=== PATIENT | male | born 1950 | race Caucasian/White ===

== ENCOUNTER 2022-01-31 12:10 | Inpatient (IN) | payer OTHER ==
[~2022-01-31] VITALS: Ht 182.9 cm; Wt 118.0 kg
[2022-01-31] MEDS ORDERED: SODIUM CHLORIDE 0.9% 1,000 ML IV ONE (13:00)
[2022-01-31] MEDS ORDERED: ASPirin 81 mg TAB PO ONE (13:00)
[2022-01-31] MEDS ORDERED: SODIUM CHLORIDE 0.9% 1,000 ML IVB ONE (13:00)
[2022-01-31 13:32] LABS: Basophils # (auto) 0 10 ^3/uL (0-0.2); Basophils % (auto) 0.9 % (0.0-2.0); Eosinophils # (auto) 0.7 10 ^3/uL (0-0.8); Eosinophils % (auto) 14.1 % (0.0-7.0); Hemoglobin 13.3 g/dL (13.5-17.5); Lymphocytes # (auto) 1.4 10 ^3/uL (0.4-5.4); Lymphocytes % (auto) 27.6 % (10.0-50.0); Mean Corpuscular Volume 88.2 fL (80.0-100.0); Monocytes # (auto) 0.3 10 ^3/uL (0-1.3); Monocytes % (auto) 5.3 % (0.0-12.0); Neutrophils # (auto) 2.6 10 ^3/uL (1.6-8.6); Neutrophils % (auto) 52.1 % (37.0-80.0); Nucleated Red Blood Cells % 0.1 %; Red Blood Cells 4.42 10^6/uL (4.5-5.90); Red Cell Distribution Width 18.7 % (11.8-14.3)
[2022-01-31 13:44] LABS: Albumin 4.1 g/dL (3.4-5.0); Calcium 9.9 mg/dL (8.5-10.1); Potassium 4.1 mmol/L (3.5-5.1)
[2022-01-31 13:50] LABS: BUN/Creatinine Ratio 16.6; Bilirubin, Total 0.6 mg/dL (0.2-1.0); Total Protein 7.9 g/dL (6.4-8.2)
[2022-01-31 14:28] LABS: INR 1.2 (0.9-1.15); Partial Thromboplastin Time 28.4 sec (23.6-33.0)
[2022-01-31] MEDS ORDERED: FUROSEMIDE 40 MG/4 ML VIAL IV ONE (15:30)
[2022-01-31] MEDS ORDERED: SPIRONOLACTONE 25 MG TAB PO ONE (15:30)
[2022-01-31] MEDS ORDERED: LEVOTHYROXINE SODIUM 100 MCG/5 ML INJ IV ONE (15:30)
[2022-01-31] MEDS ORDERED: IPRATROPIUM BROM 0.5 MG/2.5ML INH SOL NEB PRN ×2 (16:15→17:00)
[2022-01-31] MEDS ORDERED: DOCUSATE SOD 100 MG CAP PO PRN (16:15)
[2022-01-31] MEDS ORDERED: NITROGLYCERIN 0.4 MG SL TAB SL PRN (16:15)
[2022-01-31] MEDS ORDERED: MORPHINE SULFATE 4 MG/ML SYR/VIAL IV PRN (16:15)
[2022-01-31] MEDS ORDERED: ALBUTEROL SULF 2.5 MG/0.5ML(0.5%) NEB SOLN NEB PRN ×2 (16:15→17:00)
[2022-01-31] MEDS ORDERED: ONDANSETRON HCL 4 MG/2 ML VIAL IV PRN (16:15)
[2022-01-31] MEDS ORDERED: ACETAMINOPHEN 325 MG TAB PO PRN (16:15)
[2022-01-31] MEDS ORDERED: hydrALAZINE HCL 20 MG/ML VL IV PRN (16:15)
[2022-01-31] MEDS ORDERED: TAM04C PO (16:19)
[2022-01-31] MEDS ORDERED: GLIP5TAB12 PO (16:21)
[2022-01-31] MEDS ORDERED: HYDR50TA69 PO (16:21)
[2022-01-31] MEDS ORDERED: FINACRY XX (16:26)
[2022-01-31] MEDS ORDERED: ESCI-28 PO (16:26)
[2022-01-31 16:27] VITALS: BP 139/89
[2022-01-31] MEDS ORDERED: TRAZ-181 PO (16:27)
[2022-01-31] MEDS ORDERED: LOSA-69 PO (16:27)
[2022-01-31] MEDS ORDERED: ASPI-543 PO (16:28)
[2022-01-31] MEDS ORDERED: INSLANTI SC (16:30)
[2022-01-31] MEDS ORDERED: DEXTROSE (50%) 50ML SYRG IV PRN (16:45)
[2022-01-31] MEDS ORDERED: glipiZIDE 5 MG TAB PO SCH (18:00)
[2022-01-31] MEDS: ACCU-CHEK COMFORT CURVE STRIP VI SCH ×2 (18:40→22:42)
[2022-01-31] MEDS: InsuLIN REG 1unit/0.01ml Soln (100units/ml) SC SCH ×2 (18:41→22:14)
[2022-01-31 21:30] VITALS: BP 120/70
[2022-01-31] MEDS: TAMSULOSIN HYDROCHLORIDE 0.4 MG CAP PO SCH (22:10)
[2022-01-31] MEDS: SODIUM CHLOR 0.9% PF (SALINE LOCK) 10ML VIAL/SYR IV SCH (22:10)
[2022-01-31] MEDS: INSULIN LANTUS (GLARGINE) 1 /0.01ml (100units/ml) SC SCH (22:15)
[2022-01-31 23:15] VITALS: BP 120/70
[2022-02-01] MEDS: TEMAZEPAM 15 MG CAP PO PRN (01:26)
[2022-02-01 04:26] VITALS: BP 97/43
[2022-02-01 05:41] LABS: Basophils # (auto) 0.1 10 ^3/uL (0-0.2); Basophils % (auto) 1.1 % (0.0-2.0); Eosinophils # (auto) 0.8 10 ^3/uL (0-0.8); Eosinophils % (auto) 14.1 % (0.0-7.0); Hematocrit 36.3 % (41.0-53.0); Hemoglobin 12.7 g/dL (13.5-17.5); Lymphocytes # (auto) 1.4 10 ^3/uL (0.4-5.4); Lymphocytes % (auto) 25.3 % (10.0-50.0); Mean Corpuscular Hemoglobin 30.4 pg (28.0-32.0); Mean Corpuscular Hgb Conc. 35.1 g/dL (32.0-36.0); Mean Corpuscular Volume 86.7 fL (80.0-100.0); Monocytes # (auto) 0.4 10 ^3/uL (0-1.3); Monocytes % (auto) 6.6 % (0.0-12.0); Neutrophils # (auto) 2.9 10 ^3/uL (1.6-8.6); Neutrophils % (auto) 52.9 % (37.0-80.0); Nucleated Red Blood Cells % 0.1 %; Red Blood Cells 4.18 10^6/uL (4.5-5.90); Red Cell Distribution Width 18.6 % (11.8-14.3); White Blood Cell 5.4 10^3/uL (4.4-10.8)
[2022-02-01 06:03] LABS: Calcium 10.1 mg/dL (8.5-10.1); Potassium 3.6 mmol/L (3.5-5.1)
[2022-02-01 06:06] LABS: BUN/Creatinine Ratio 17.8
[2022-02-01 06:20] LABS: Bilirubin, Total 0.4 mg/dL (0.2-1.0); Total Protein 7.5 g/dL (6.4-8.2)
[2022-02-01] MEDS: SODIUM CHLOR 0.9% PF (SALINE LOCK) 10ML VIAL/SYR IV SCH ×3 (06:24→21:44)
[2022-02-01] MEDS: InsuLIN REG 1unit/0.01ml Soln (100units/ml) SC SCH ×4 (06:26→21:45)
[2022-02-01] MEDS: ACCU-CHEK COMFORT CURVE STRIP VI SCH ×4 (06:27→21:44)
[2022-02-01] MEDS ORDERED: LEVOTHYROXINE SODIUM 50 MCG TAB PO SCH (07:00)
[2022-02-01 08:36] VITALS: BP 95/52
[2022-02-01] MEDS: ASPirin-EC 81 mg tab PO SCH (09:18)
[2022-02-01] MEDS: CITALOPRAM HYDROBR 20 MG TAB PO SCH (09:18)
[2022-02-01] MEDS: FINASTERIDE 5 MG TAB PO SCH (09:19)
[2022-02-01] MEDS: TAMSULOSIN HYDROCHLORIDE 0.4 MG CAP PO SCH ×2 (09:19→21:37)
[2022-02-01] MEDS ORDERED: FUROSEMIDE 20 MG/2 ML VIAL IV SCH (10:00)
[2022-02-01] MEDS ORDERED: ENOXAPARIN SOD 40 MG/0.4 ML SYRINGE SC SCH (10:00)
[2022-02-01] MEDS: FUROSEMIDE 40 MG/4 ML VIAL IV SCH (10:00)
[2022-02-01] MEDS ORDERED: INFLUENZA QUAD 2021-2022 0.5 ML SYRG IM ONE (12:15)
[2022-02-01 12:56] VITALS: BP 105/59
[2022-02-01] MEDS ORDERED: guaiFENesin-DM 100/10mg/5ml SYR PO PRN (13:00)
[2022-02-01] MEDS: HYDROcodone-ACET 5/325MG TAB PO PRN ×2 (13:18→20:34)
[2022-02-01 16:46] VITALS: BP 92/70
[2022-02-01] MEDS: INSULIN LANTUS (GLARGINE) 1 /0.01ml (100units/ml) SC SCH (21:45)
[2022-02-02 05:00] VITALS: BP 105/65
[2022-02-02] MEDS: SODIUM CHLOR 0.9% PF (SALINE LOCK) 10ML VIAL/SYR IV SCH ×3 (05:08→21:47)
[2022-02-02] MEDS: LEVOTHYROXINE SODIUM 100 MCG TAB PO SCH (05:09)
[2022-02-02] MEDS: ACCU-CHEK COMFORT CURVE STRIP VI SCH ×4 (05:55→22:01)
[2022-02-02] MEDS: InsuLIN REG 1unit/0.01ml Soln (100units/ml) SC SCH ×4 (05:59→22:06)
[2022-02-02 06:20] LABS: Basophils # (auto) 0 10 ^3/uL (0-0.2); Basophils % (auto) 1.1 % (0.0-2.0); Eosinophils # (auto) 0.6 10 ^3/uL (0-0.8); Eosinophils % (auto) 13.1 % (0.0-7.0); Hemoglobin 12.6 g/dL (13.5-17.5); Lymphocytes # (auto) 1.4 10 ^3/uL (0.4-5.4); Lymphocytes % (auto) 31.1 % (10.0-50.0); Mean Corpuscular Hemoglobin 31.1 pg (28.0-32.0); Mean Corpuscular Hgb Conc. 36.1 g/dL (32.0-36.0); Mean Corpuscular Volume 86.2 fL (80.0-100.0); Monocytes # (auto) 0.3 10 ^3/uL (0-1.3); Monocytes % (auto) 5.6 % (0.0-12.0); Neutrophils # (auto) 2.2 10 ^3/uL (1.6-8.6); Neutrophils % (auto) 49.1 % (37.0-80.0); Nucleated Red Blood Cells % 0.1 %; Red Blood Cells 4.06 10^6/uL (4.5-5.90); Red Cell Distribution Width 18.8 % (11.8-14.3); White Blood Cell 4.5 10^3/uL (4.4-10.8)
[2022-02-02 06:42] LABS: Potassium 3.8 mmol/L (3.5-5.1)
[2022-02-02 06:53] LABS: Albumin 4.1 g/dL (3.4-5.0); BUN/Creatinine Ratio 19.4; Bilirubin, Total 0.6 mg/dL (0.2-1.0); Calcium 9.6 mg/dL (8.5-10.1); Magnesium 2.1 mg/dL (1.6-2.6); Phosphorus 4.6 mg/dL (2.5-4.90); Total Protein 7.8 g/dL (6.4-8.2)
[2022-02-02 08:00] VITALS: BP 111/60
[2022-02-02] MEDS ORDERED: ENOXAPARIN SOD 30 MG/0.3 ML SYRINGE SC SCH (10:00)
[2022-02-02] MEDS: CITALOPRAM HYDROBR 20 MG TAB PO SCH (10:10)
[2022-02-02] MEDS: ASPirin-EC 81 mg tab PO SCH (10:10)
[2022-02-02] MEDS: FUROSEMIDE 40 MG/4 ML VIAL IV SCH (10:10)
[2022-02-02] MEDS: TAMSULOSIN HYDROCHLORIDE 0.4 MG CAP PO SCH ×2 (10:10→21:48)
[2022-02-02] MEDS: FINASTERIDE 5 MG TAB PO SCH (10:10)
[2022-02-02] MEDS ORDERED: INSLANTI SC (10:20)
[2022-02-02] MEDS ORDERED: ARIP2TAB PO (10:20)
[2022-02-02] MEDS ORDERED: LOSA25TA38 PO (10:20)
[2022-02-02] MEDS ORDERED: LEVO112T4 PO (10:20)
[2022-02-02] MEDS ORDERED: TAM04C PO (10:20)
[2022-02-02] MEDS ORDERED: FINACRY PO (10:20)
[2022-02-02] MEDS ORDERED: GLIP5TAB12 PO (10:20)
[2022-02-02] MEDS ORDERED: FINA1TAB10 OR (10:21)
[2022-02-02] MEDS ORDERED: FINA5TAB4 PO (10:21)
[2022-02-02 12:00] VITALS: BP 113/73
[2022-02-02 16:00] VITALS: BP 102/61
[2022-02-02] MEDS: ACETAMINOPHEN 325 MG TAB PO PRN ×2 (16:29→21:49)
[2022-02-02] MEDS: ATORVASTATIN 20 MG TAB PO SCH (21:48)
[2022-02-02] MEDS: APIXABAN 5 MG TAB PO SCH (21:48)
[2022-02-02 22:00] VITALS: BP 109/71
[2022-02-02] MEDS: INSULIN LANTUS (GLARGINE) 1 /0.01ml (100units/ml) SC SCH (22:07)
[2022-02-03] MEDS: LEVOTHYROXINE SODIUM 100 MCG TAB PO SCH (05:14)
[2022-02-03] MEDS: SODIUM CHLOR 0.9% PF (SALINE LOCK) 10ML VIAL/SYR IV SCH ×3 (05:14→21:54)
[2022-02-03] MEDS: HYDROcodone-ACET 5/325MG TAB PO PRN ×2 (05:15→18:43)
[2022-02-03 05:17] VITALS: BP 91/47
[2022-02-03] MEDS: ACCU-CHEK COMFORT CURVE STRIP VI SCH ×4 (06:17→21:54)
[2022-02-03] MEDS: InsuLIN REG 1unit/0.01ml Soln (100units/ml) SC SCH ×4 (06:19→21:53)
[2022-02-03 07:38] LABS: Calcium 9.5 mg/dL (8.5-10.1); Magnesium 2.7 mg/dL (1.6-2.6); Potassium 3.6 mmol/L (3.5-5.1)
[2022-02-03 07:40] LABS: BUN/Creatinine Ratio 19.3
[2022-02-03 08:00] VITALS: BP 93/42
[2022-02-03] MEDS: ASPirin-EC 81 mg tab PO SCH (09:05)
[2022-02-03] MEDS: CITALOPRAM HYDROBR 20 MG TAB PO SCH (09:05)
[2022-02-03] MEDS: FINASTERIDE 5 MG TAB PO SCH (09:06)
[2022-02-03] MEDS: APIXABAN 5 MG TAB PO SCH ×2 (09:06→21:54)
[2022-02-03] MEDS: TAMSULOSIN HYDROCHLORIDE 0.4 MG CAP PO SCH ×2 (09:06→21:54)
[2022-02-03 10:27] LABS: Urine Bacteria FEW /hpf (None Seen); Urine Blood 2+ /uL (Negative); Urine Hyaline Cast FEW /lpf (0 - 2); Urine Mucus FEW (None Seen); Urine Specific Gravity 1.022 (1.001-1.035); Urine WBC 32 /hpf (0 - 3)
[2022-02-03 10:56] LABS: Creatinine, Urine 175 mg/dL (30.0-125.0); Sodium Urine 31 mmol/L (40-220)
[2022-02-03 12:09] VITALS: BP 96/45
[2022-02-03] MEDS: cefTRIAXone 1GM/50ML D5W 50 ML IV SCH (12:10)
[2022-02-03 16:38] VITALS: BP 93/70
[2022-02-03 17:09] VITALS: BP 93/70
[2022-02-03 21:48] VITALS: BP 105/56
[2022-02-03] MEDS: ATORVASTATIN 20 MG TAB PO SCH (21:53)
[2022-02-03] MEDS: INSULIN LANTUS (GLARGINE) 1 /0.01ml (100units/ml) SC SCH (21:54)
[2022-02-03] MEDS: SOD CHL 0.45% 1,000 ML IV SCH (22:30)
[2022-02-04] VITALS (7 sets, daily range): BP systolic 101–129; BP diastolic 65–80
[2022-02-04] MEDS: SODIUM CHLOR 0.9% PF (SALINE LOCK) 10ML VIAL/SYR IV SCH ×3 (06:00→21:44)
[2022-02-04 06:06] LABS: Basophils # (auto) 0.1 10 ^3/uL (0-0.2); Basophils % (auto) 0.9 % (0.0-2.0); Eosinophils # (auto) 0.8 10 ^3/uL (0-0.8); Eosinophils % (auto) 13.7 % (0.0-7.0); Hematocrit 35.6 % (41.0-53.0); Hemoglobin 12.6 g/dL (13.5-17.5); Lymphocytes # (auto) 1.6 10 ^3/uL (0.4-5.4); Lymphocytes % (auto) 29.2 % (10.0-50.0); Mean Corpuscular Hemoglobin 30.7 pg (28.0-32.0); Mean Corpuscular Hgb Conc. 35.4 g/dL (32.0-36.0); Mean Corpuscular Volume 86.8 fL (80.0-100.0); Monocytes # (auto) 0.4 10 ^3/uL (0-1.3); Monocytes % (auto) 6.6 % (0.0-12.0); Neutrophils # (auto) 2.7 10 ^3/uL (1.6-8.6); Neutrophils % (auto) 49.6 % (37.0-80.0); Nucleated Red Blood Cells % 0.2 %; Red Cell Distribution Width 18.5 % (11.8-14.3); White Blood Cell 5.5 10^3/uL (4.4-10.8)
[2022-02-04 06:19] LABS: Potassium 3.8 mmol/L (3.5-5.1)
[2022-02-04 06:29] LABS: BUN/Creatinine Ratio 21.1; Calcium 9.7 mg/dL (8.5-10.1); Magnesium 2.7 mg/dL (1.6-2.6)
[2022-02-04] MEDS: ACCU-CHEK COMFORT CURVE STRIP VI SCH ×4 (06:52→21:39)
[2022-02-04] MEDS: InsuLIN REG 1unit/0.01ml Soln (100units/ml) SC SCH ×4 (06:52→21:41)
[2022-02-04] MEDS: LEVOTHYROXINE SODIUM 100 MCG TAB PO SCH (06:52)
[2022-02-04] MEDS: cefTRIAXone 1GM/50ML D5W 50 ML IV SCH (08:37)
[2022-02-04] MEDS: ASPirin-EC 81 mg tab PO SCH (09:31)
[2022-02-04] MEDS: APIXABAN 5 MG TAB PO SCH ×3 (09:31→21:56)
[2022-02-04] MEDS: CITALOPRAM HYDROBR 20 MG TAB PO SCH (09:31)
[2022-02-04] MEDS: TAMSULOSIN HYDROCHLORIDE 0.4 MG CAP PO SCH ×2 (09:31→21:45)
[2022-02-04] MEDS: FINASTERIDE 5 MG TAB PO SCH (09:31)
[2022-02-04] MEDS ORDERED: POLYETHYLENE GLYCOL 17 GM PWDR PO PRN (12:00)
[2022-02-04] MEDS: SOD CHL 0.45% 1,000 ML IV SCH ×2 (13:00→18:00)
[2022-02-04] MEDS: HYDROcodone-ACET 5/325MG TAB PO PRN ×2 (17:29→22:54)
[2022-02-04] MEDS: ATORVASTATIN 20 MG TAB PO SCH (21:45)
[2022-02-04] MEDS ORDERED: INSULIN LANTUS (GLARGINE) 1 /0.01ml (100units/ml) SC SCH (22:00)
[2022-02-05] MEDS: SOD CHL 0.45% 1,000 ML IV SCH (01:28)
[2022-02-05 05:00] VITALS: BP 111/63
[2022-02-05] MEDS: SODIUM CHLOR 0.9% PF (SALINE LOCK) 10ML VIAL/SYR IV SCH ×3 (06:04→22:10)
[2022-02-05 06:12] LABS: INR 1.22 (0.9-1.15); Partial Thromboplastin Time 30.6 sec (23.6-33.0)
[2022-02-05 06:19] LABS: Calcium 9.2 mg/dL (8.5-10.1); Magnesium 2.6 mg/dL (1.6-2.6); Potassium 3.9 mmol/L (3.5-5.1)
[2022-02-05] MEDS: ACCU-CHEK COMFORT CURVE STRIP VI SCH ×4 (06:22→22:13)
[2022-02-05] MEDS: InsuLIN REG 1unit/0.01ml Soln (100units/ml) SC SCH ×4 (06:22→22:00)
[2022-02-05] MEDS: LEVOTHYROXINE SODIUM 100 MCG TAB PO SCH (06:28)
[2022-02-05 06:30] LABS: BUN/Creatinine Ratio 21.1
[2022-02-05 08:00] VITALS: BP 90/63
[2022-02-05] MEDS: cefTRIAXone 1GM/50ML D5W 50 ML IV SCH (08:47)
[2022-02-05 09:00] VITALS: BP_SYST 116; BP_SYST 90; BP_DIAS 63; BP_DIAS 67
[2022-02-05] MEDS: CITALOPRAM HYDROBR 20 MG TAB PO SCH (10:38)
[2022-02-05] MEDS: FINASTERIDE 5 MG TAB PO SCH (10:38)
[2022-02-05] MEDS: TAMSULOSIN HYDROCHLORIDE 0.4 MG CAP PO SCH ×2 (10:38→22:00)
[2022-02-05] MEDS: ASPirin-EC 81 mg tab PO SCH (11:06)
[2022-02-05 12:30] VITALS: BP 113/69
[2022-02-05] MEDS ORDERED: LEVOTHYROXINE SODIUM 100 MCG/5 ML INJ IV ONE (12:30)
[2022-02-05] MEDS ORDERED: BISACODYL 10 MG RECT SUPP PR PRN (12:45)
[2022-02-05] MEDS ORDERED: BISACODYL 10 MG RECT SUPP PR ONE (12:45)
[2022-02-05] MEDS ORDERED: ANGIOMAX 250 MG VIAL IV ONE (14:56)
[2022-02-05] MEDS ORDERED: MIDAZOLAM HCL 2MG/2ML 2ml VIAL (1mg/ml) ONE (14:57)
[2022-02-05] MEDS ORDERED: SODIUM CHL 0.9% 0 ML ONE (14:57)
[2022-02-05] MEDS ORDERED: fentaNYL CITRATE 100 MCG/2 ML VL ONE (14:57)
[2022-02-05] MEDS ORDERED: IOHEXOL 350 MG/ML 100ML IJ ONE (14:58)
[2022-02-05] MEDS ORDERED: LIDOCAINE 2%HCL (LOCAL ANESTH.) INJ 10ml MDV ONE (14:59)
[2022-02-05 18:01] VITALS: BP 99/65
[2022-02-05 22:00] VITALS: BP 109/67
[2022-02-05] MEDS ORDERED: INSULIN LANTUS (GLARGINE) 1 /0.01ml (100units/ml) SC SCH (22:00)
[2022-02-05] MEDS: APIXABAN 5 MG TAB PO SCH (22:11)
[2022-02-05] MEDS: ATORVASTATIN 20 MG TAB PO SCH (22:12)
[2022-02-06 05:00] VITALS: BP 125/63
[2022-02-06] MEDS: InsuLIN REG 1unit/0.01ml Soln (100units/ml) SC SCH ×4 (06:04→21:32)
[2022-02-06] MEDS: ACCU-CHEK COMFORT CURVE STRIP VI SCH ×4 (06:04→21:34)
[2022-02-06] MEDS: SODIUM CHLOR 0.9% PF (SALINE LOCK) 10ML VIAL/SYR IV SCH ×3 (06:04→21:34)
[2022-02-06 06:07] LABS: Basophils # (auto) 0.1 10 ^3/uL (0-0.2); Basophils % (auto) 1.3 % (0.0-2.0); Eosinophils # (auto) 0.4 10 ^3/uL (0-0.8); Eosinophils % (auto) 8.7 % (0.0-7.0); Hematocrit 36.2 % (41.0-53.0); Hemoglobin 12.7 g/dL (13.5-17.5); Lymphocytes # (auto) 1.1 10 ^3/uL (0.4-5.4); Lymphocytes % (auto) 22.6 % (10.0-50.0); Mean Corpuscular Hemoglobin 30.9 pg (28.0-32.0); Mean Corpuscular Hgb Conc. 35.1 g/dL (32.0-36.0); Mean Corpuscular Volume 87.8 fL (80.0-100.0); Monocytes # (auto) 0.3 10 ^3/uL (0-1.3); Monocytes % (auto) 5.9 % (0.0-12.0); Neutrophils # (auto) 3.1 10 ^3/uL (1.6-8.6); Neutrophils % (auto) 61.5 % (37.0-80.0); Nucleated Red Blood Cells % 0.1 %; Red Blood Cells 4.12 10^6/uL (4.5-5.90)
[2022-02-06 06:31] LABS: Potassium 3.9 mmol/L (3.5-5.1)
[2022-02-06 06:42] LABS: Albumin 4.1 g/dL (3.4-5.0); BUN/Creatinine Ratio 18.4; Bilirubin, Total 0.5 mg/dL (0.2-1.0); Total Protein 7.7 g/dL (6.4-8.2)
[2022-02-06 08:43] VITALS: BP 128/72
[2022-02-06] MEDS: TAMSULOSIN HYDROCHLORIDE 0.4 MG CAP PO SCH ×2 (09:08→21:32)
[2022-02-06] MEDS: APIXABAN 5 MG TAB PO SCH ×2 (09:08→21:31)
[2022-02-06] MEDS: CITALOPRAM HYDROBR 20 MG TAB PO SCH (09:08)
[2022-02-06] MEDS: LEVOTHYROXINE SODIUM 100 MCG TAB PO SCH (09:08)
[2022-02-06] MEDS: cefTRIAXone 1GM/50ML D5W 50 ML IV SCH (09:09)
[2022-02-06] MEDS: FINASTERIDE 5 MG TAB PO SCH (09:12)
[2022-02-06] MEDS ORDERED: DEXTROSE (50%) 50ML SYRG IV PRN (11:00)
[2022-02-06 12:30] VITALS: BP 118/68
[2022-02-06 17:00] VITALS: BP 141/77
[2022-02-06] MEDS: ATORVASTATIN 20 MG TAB PO SCH (21:32)
[2022-02-06] MEDS: INSULIN LANTUS (GLARGINE) 1 /0.01ml (100units/ml) SC SCH (21:33)
[2022-02-06] MEDS: HYDROcodone-ACET 5/325MG TAB PO PRN (21:34)
[2022-02-06 22:00] VITALS: BP 120/62
[2022-02-07 05:00] VITALS: BP 119/55
[2022-02-07] MEDS: LEVOTHYROXINE SODIUM 112 MCG TAB PO SCH (05:34)
[2022-02-07] MEDS: ACCU-CHEK COMFORT CURVE STRIP VI SCH ×4 (05:35→21:57)
[2022-02-07] MEDS: InsuLIN REG 1unit/0.01ml Soln (100units/ml) SC SCH ×4 (05:35→21:56)
[2022-02-07] MEDS: SODIUM CHLOR 0.9% PF (SALINE LOCK) 10ML VIAL/SYR IV SCH ×3 (05:36→22:17)
[2022-02-07 05:45] LABS: Basophils # (auto) 0.1 10 ^3/uL (0-0.2); Eosinophils # (auto) 0.5 10 ^3/uL (0-0.8); Eosinophils % (auto) 9.6 % (0.0-7.0); Hematocrit 34.9 % (41.0-53.0); Hemoglobin 12.4 g/dL (13.5-17.5); Lymphocytes # (auto) 1.5 10 ^3/uL (0.4-5.4); Lymphocytes % (auto) 27.8 % (10.0-50.0); Mean Corpuscular Hemoglobin 30.9 pg (28.0-32.0); Mean Corpuscular Hgb Conc. 35.4 g/dL (32.0-36.0); Mean Corpuscular Volume 87.3 fL (80.0-100.0); Monocytes # (auto) 0.3 10 ^3/uL (0-1.3); Monocytes % (auto) 5.7 % (0.0-12.0); Neutrophils % (auto) 55.9 % (37.0-80.0); Nucleated Red Blood Cells % 0.1 %; White Blood Cell 5.4 10^3/uL (4.4-10.8)
[2022-02-07 06:21] LABS: BUN/Creatinine Ratio 16.3; Potassium 3.9 mmol/L (3.5-5.1)
[2022-02-07 06:23] LABS: Calcium 9.5 mg/dL (8.5-10.1)
[2022-02-07 08:57] VITALS: BP 108/52
[2022-02-07] MEDS: cefTRIAXone 1GM/50ML D5W 50 ML IV SCH (09:00)
[2022-02-07] MEDS: TAMSULOSIN HYDROCHLORIDE 0.4 MG CAP PO SCH ×2 (09:34→21:55)
[2022-02-07] MEDS: FINASTERIDE 5 MG TAB PO SCH (09:34)
[2022-02-07] MEDS: APIXABAN 5 MG TAB PO SCH ×2 (09:34→21:55)
[2022-02-07] MEDS: CITALOPRAM HYDROBR 20 MG TAB PO SCH (09:34)
[2022-02-07 13:00] VITALS: BP 118/52
[2022-02-07 16:04] VITALS: BP 111/57
[2022-02-07] MEDS: HYDROcodone-ACET 5/325MG TAB PO PRN (20:58)
[2022-02-07] MEDS: ATORVASTATIN 20 MG TAB PO SCH (21:54)
[2022-02-07 22:00] VITALS: BP 134/83
[2022-02-07] MEDS: INSULIN LANTUS (GLARGINE) 1 /0.01ml (100units/ml) SC SCH (22:00)
[2022-02-08] MEDS: TEMAZEPAM 15 MG CAP PO PRN (00:16)
[2022-02-08 05:00] VITALS: BP 121/56
[2022-02-08] MEDS: SODIUM CHLOR 0.9% PF (SALINE LOCK) 10ML VIAL/SYR IV SCH (05:47)
[2022-02-08] MEDS: LEVOTHYROXINE SODIUM 112 MCG TAB PO SCH (06:17)
[2022-02-08] MEDS: ACCU-CHEK COMFORT CURVE STRIP VI SCH (06:18)
[2022-02-08] MEDS: InsuLIN REG 1unit/0.01ml Soln (100units/ml) SC SCH (06:22)
[2022-02-08] MEDS: HYDROcodone-ACET 5/325MG TAB PO PRN (07:35)
[2022-02-08 08:00] VITALS: BP 124/71
[2022-02-08] MEDS: CITALOPRAM HYDROBR 20 MG TAB PO SCH (09:33)
[2022-02-08] MEDS: TAMSULOSIN HYDROCHLORIDE 0.4 MG CAP PO SCH (09:33)
[2022-02-08] MEDS: APIXABAN 5 MG TAB PO SCH (09:33)
[2022-02-08] MEDS: FINASTERIDE 5 MG TAB PO SCH (09:34)
[2022-02-08 12:00] VITALS: BP 97/55
== END 2022-02-08 14:53 | disposition left against medical advice (07) | DRG 286 ==
LOC: EDBD 12:10 → ER 12:10 → TELE 16:05 → TELE-CENTR 21:45
PROVIDERS: ADMIT Registered Nurse; ATTEND Internal Medicine
PROC: 4A023N7 Measurement of Cardiac Sampling and Pressure, Left Heart, Percutaneous Approach (ICD-10-PCS; principal; 2022-02-05)
PROC: B2111ZZ Fluoroscopy of Multiple Coronary Arteries using Low Osmolar Contrast (ICD-10-PCS; 2022-02-05)
PROC: B2151ZZ Fluoroscopy of Left Heart using Low Osmolar Contrast (ICD-10-PCS; 2022-02-05)
PROC: B41C1ZZ Fluoroscopy of Pelvic Arteries using Low Osmolar Contrast (ICD-10-PCS; 2022-02-05)
DX: I13.0 Hypertensive heart and chronic kidney disease with heart failure and stage 1 through stage 4 chronic kidney disease, or unspecified chronic kidney disease (principal); N17.0 Acute kidney failure with tubular necrosis; I50.43 Acute on chronic combined systolic (congestive) and diastolic (congestive) heart failure; D68.69 Other thrombophilia; N13.8 Other obstructive and reflux uropathy; N18.4 Chronic kidney disease, stage 4 (severe); N39.0 Urinary tract infection, site not specified; E03.9 Hypothyroidism, unspecified; I42.9 Cardiomyopathy, unspecified; I48.91 Unspecified atrial fibrillation; D69.6 Thrombocytopenia, unspecified; G25.81 Restless legs syndrome; Z20.822 Contact with and (suspected) exposure to COVID-19; E11.22 Type 2 diabetes mellitus with diabetic chronic kidney disease; N40.1 Benign prostatic hyperplasia with lower urinary tract symptoms; E66.9 Obesity, unspecified; R00.1 Bradycardia, unspecified; Z53.21 Procedure and treatment not carried out due to patient leaving prior to being seen by health care provider; R09.89 Other specified symptoms and signs involving the circulatory and respiratory systems; K42.9 Umbilical hernia without obstruction or gangrene; E78.5 Hyperlipidemia, unspecified; I25.10 Atherosclerotic heart disease of native coronary artery without angina pectoris; Z82.49 Family history of ischemic heart disease and other diseases of the circulatory system; Z83.3 Family history of diabetes mellitus; Z86.73 Personal history of transient ischemic attack (TIA), and cerebral infarction without residual deficits; Z87.891 Personal history of nicotine dependence; Z91.14 Patient's other noncompliance with medication regimen; Z91.19 Patient's noncompliance with other medical treatment and regimen; Z95.1 Presence of aortocoronary bypass graft; Z68.34 Body mass index [BMI] 34.0-34.9, adult
CPT/HCPCS: 36415; 71045; 75736; 76775; 80048; 80053; 80061; 81001; 82570; 82962; 83036; 83735; 83880; 84100; 84133; 84300; 84439; 84443; 84484; 85025; 85379; 85610; 85730; 86850; 86900; 86901; 87086; 87088; 90686; 93005; 93306; 93458; 93886; 96361; 96374; 97116; 97163; 97530; 99152; 99153; G0378; J0696; J1815; J2001; J2250; J3490

== ENCOUNTER 2022-04-09 20:02 | Inpatient (IN) | payer OTHER ==
[~2022-04-09] VITALS: Ht 170.2 cm; Wt 109.0 kg
[~2022-04-09 20:02] MED LIST: ARIP2TAB PO; ASPI-543 PO; ESCI-28 PO; FINA5TAB4 PO; GLIP5TAB12 PO; HYDR50TA69 PO; INSLANTI SC; LEVO112T4 PO; LOSA25TA38 PO; TAM04C PO; TRAZ-181 PO
[2022-04-09 21:12] LABS: Basophils # (auto) 0.1 10 ^3/uL (0-0.2); Basophils % (auto) 2.8 % (0.0-2.0); Eosinophils # (auto) 0.5 10 ^3/uL (0-0.8); Eosinophils % (auto) 12.6 % (0.0-7.0); Hematocrit 36.9 % (41.0-53.0); Lymphocytes # (auto) 1.2 10 ^3/uL (0.4-5.4); Lymphocytes % (auto) 30.6 % (10.0-50.0); Mean Corpuscular Hemoglobin 31.9 pg (28.0-32.0); Mean Corpuscular Hgb Conc. 35.1 g/dL (32.0-36.0); Mean Corpuscular Volume 90.8 fL (80.0-100.0); Monocytes # (auto) 0.2 10 ^3/uL (0-1.3); Nucleated Red Blood Cells % 0.2 %; Red Blood Cells 4.07 10^6/uL (4.5-5.90); Red Cell Distribution Width 15.6 % (11.8-14.3)
[2022-04-09 21:30] LABS: Albumin 3.5 g/dL (3.4-5.0); Calcium 8.9 mg/dL (8.5-10.1); Potassium 4.2 mmol/L (3.5-5.1)
[2022-04-09 21:32] LABS: BUN/Creatinine Ratio 11.2
[2022-04-09 21:34] LABS: Bilirubin, Total 0.4 mg/dL (0.2-1.0); Total Protein 7.2 g/dL (6.4-8.2)
[2022-04-10] MEDS ORDERED: ONDANSETRON HCL 4 MG/2 ML VIAL IV PRN (01:15)
[2022-04-10] MEDS ORDERED: ACETAMINOPHEN 325 MG TAB PO PRN (01:15)
[2022-04-10] MEDS ORDERED: DEXTROSE (50%) 50ML SYRG IV PRN (01:15)
[2022-04-10] MEDS: InsuLIN REG 1unit/0.01ml Soln (100units/ml) SC SCH ×3 (06:49→17:33)
[2022-04-10] MEDS: ACCU-CHEK COMFORT CURVE STRIP VI SCH ×3 (06:49→17:16)
[2022-04-10] MEDS ORDERED: LEVOTHYROXINE SODIUM 112 MCG TAB PO SCH (07:00)
[2022-04-10 09:00] VITALS: BP_SYST 94; BP_SYST 95; BP_DIAS 52; BP_DIAS 66
[2022-04-10] MEDS: ASPirin 81 mg TAB PO SCH (09:30)
[2022-04-10] MEDS: LOSARTAN POTASSIUM 25 MG TAB PO SCH (09:31)
[2022-04-10] MEDS: FINASTERIDE 5 MG TAB PO SCH (09:32)
[2022-04-10] MEDS ORDERED: ENOXAPARIN SOD 30 MG/0.3 ML SYRINGE SC SCH ×2 (10:00→22:00)
[2022-04-10 12:37] VITALS: BP 115/61
[2022-04-10 17:07] VITALS: BP 137/67
[2022-04-10] MEDS ORDERED: cefTRIAXone 1GM/50ML D5W 50 ML IV ONE (18:00)
[2022-04-10 19:04] LABS: Urine Bacteria NONE SEEN /hpf (None Seen); Urine Blood Negative /uL (Negative); Urine Mucus FEW (None Seen); Urine Specific Gravity 1.029 (1.001-1.035); Urine WBC 6 /hpf (0 - 3)
[2022-04-10 22:00] VITALS: BP 119/60
[2022-04-10] MEDS ORDERED: ATORVASTATIN 20 MG TAB PO SCH (22:00)
[2022-04-10] MEDS: ATORVASTATIN 20 MG TAB PO SCH (22:56)
[2022-04-11] MEDS: ACCU-CHEK COMFORT CURVE STRIP VI SCH ×5 (00:16→23:28)
[2022-04-11] MEDS: InsuLIN REG 1unit/0.01ml Soln (100units/ml) SC SCH ×5 (00:17→23:23)
[2022-04-11 05:00] VITALS: BP 114/61
[2022-04-11 05:53] LABS: Basophils # (auto) 0 10 ^3/uL (0-0.2); Basophils % (auto) 0.9 % (0.0-2.0); Eosinophils # (auto) 0.5 10 ^3/uL (0-0.8); Eosinophils % (auto) 11.4 % (0.0-7.0); Hematocrit 35.6 % (41.0-53.0); Hemoglobin 12.7 g/dL (13.5-17.5); Lymphocytes # (auto) 1.1 10 ^3/uL (0.4-5.4); Mean Corpuscular Hemoglobin 31.8 pg (28.0-32.0); Mean Corpuscular Hgb Conc. 35.7 g/dL (32.0-36.0); Mean Corpuscular Volume 89.1 fL (80.0-100.0); Monocytes # (auto) 0.2 10 ^3/uL (0-1.3); Monocytes % (auto) 4.3 % (0.0-12.0); Neutrophils # (auto) 2.2 10 ^3/uL (1.6-8.6); Neutrophils % (auto) 55.4 % (37.0-80.0); Nucleated Red Blood Cells % 0.2 %; Red Cell Distribution Width 15.1 % (11.8-14.3)
[2022-04-11 06:01] LABS: Albumin 3.4 g/dL (3.4-5.0); Anion Gap 8 (5-15); Carbon Dioxide 23 mmol/L (21-32); Chloride 107 mmol/L (98-107); Potassium 4.2 mmol/L (3.5-5.1); Sodium 138 mmol/L (136-145)
[2022-04-11 06:09] LABS: Alanine Aminotransferase 22 U/L (16-61); Alkaline Phosphatase 35 U/L (45-117); Aspartate Aminotransferase 30 U/L (15-37); BUN/Creatinine Ratio 13.9; Bilirubin, Total 0.7 mg/dL (0.2-1.0); Blood Urea Nitrogen 24 mg/dL (7-18); Calcium 9.2 mg/dL (8.5-10.1); Cholesterol 329 mg/dL (< 200); GFR African American 50 mL/min; GFR Non-African American 41 mL/min; Glucose 166 mg/dL (74-106); HDL Cholesterol 35 mg/dL (40-59); Total Protein 7.2 g/dL (6.4-8.2); Triglycerides 583 mg/dL (< 150)
[2022-04-11 08:00] VITALS: BP 106/59
[2022-04-11 09:00] VITALS: BP 96/41
[2022-04-11] MEDS: FINASTERIDE 5 MG TAB PO SCH (10:00)
[2022-04-11] MEDS: ASPirin 81 mg TAB PO SCH (10:03)
[2022-04-11] MEDS: LOSARTAN POTASSIUM 25 MG TAB PO SCH (10:03)
[2022-04-11] MEDS: LEVOTHYROXINE SODIUM 100 MCG/5 ML INJ IV SCH (10:04)
[2022-04-11] MEDS: cefTRIAXone 1GM/50ML D5W 50 ML IV SCH (10:04)
[2022-04-11 13:00] VITALS: BP 123/63
[2022-04-11] MEDS ORDERED: NITROGLYCERIN 0.4 MG SL TAB SL PRN ×2 (14:45)
[2022-04-11] MEDS ORDERED: MORPHINE SULFATE INJECTION 2 MG/ML SYRG IV PRN ×2 (14:45)
[2022-04-11 17:29] VITALS: BP 110/55
[2022-04-11 22:00] VITALS: BP 133/77
[2022-04-11] MEDS: SODIUM CHLOR 0.9% PF (SALINE LOCK) 10ML VIAL/SYR IV SCH (22:00)
[2022-04-11] MEDS: ATORVASTATIN 20 MG TAB PO SCH (23:27)
[2022-04-11] MEDS: ENOXAPARIN SOD 40 MG/0.4 ML SYRINGE SC SCH (23:28)
[2022-04-12 05:00] VITALS: BP 102/57
[2022-04-12] MEDS: ACCU-CHEK COMFORT CURVE STRIP VI SCH ×2 (06:20→13:09)
[2022-04-12] MEDS: SODIUM CHLOR 0.9% PF (SALINE LOCK) 10ML VIAL/SYR IV SCH ×3 (06:20→22:59)
[2022-04-12] MEDS: InsuLIN REG 1unit/0.01ml Soln (100units/ml) SC SCH ×4 (06:21→23:02)
[2022-04-12 09:00] VITALS: BP 91/41
[2022-04-12] MEDS: LOSARTAN POTASSIUM 25 MG TAB PO SCH (09:07)
[2022-04-12] MEDS: FINASTERIDE 5 MG TAB PO SCH (09:12)
[2022-04-12] MEDS: LEVOTHYROXINE SODIUM 100 MCG/5 ML INJ IV SCH (09:12)
[2022-04-12] MEDS: cefTRIAXone 1GM/50ML D5W 50 ML IV SCH (09:12)
[2022-04-12] MEDS: ASPirin 81 mg TAB PO SCH (09:13)
[2022-04-12] MEDS: ENOXAPARIN SOD 40 MG/0.4 ML SYRINGE SC SCH (09:13)
[2022-04-12 13:00] VITALS: BP 108/52
[2022-04-12] MEDS ORDERED: DEXTROSE (50%) 50ML SYRG IV PRN (13:30)
[2022-04-12] MEDS: SODIUM CHLORIDE 0.9% 1,000 ML IV SCH ×2 (14:13→22:58)
[2022-04-12 17:00] VITALS: BP 107/75
[2022-04-12] MEDS ORDERED: ACCU-CHEK COMFORT CURVE STRIP VI SCH (17:00)
[2022-04-12] MEDS ORDERED: ENOXAPARIN SOD 40 MG/0.4 ML SYRINGE SC SCH (22:00)
[2022-04-12] MEDS: ATORVASTATIN 20 MG TAB PO SCH (22:59)
== END 2022-04-12 23:10 | disposition short-term general hospital (02) | DRG 291 ==
LOC: EDBD 20:02 → ER 20:02 → OVERFLOW 04-10 01:09 → WEST WING 04-10 05:55 → TELE-WESTW 04-11 17:32
PROVIDERS: ADMIT Nurse Practitioner; ATTEND Internal Medicine
DX: I13.0 Hypertensive heart and chronic kidney disease with heart failure and stage 1 through stage 4 chronic kidney disease, or unspecified chronic kidney disease (principal); G93.41 Metabolic encephalopathy; N17.0 Acute kidney failure with tubular necrosis; I50.33 Acute on chronic diastolic (congestive) heart failure; N39.0 Urinary tract infection, site not specified; I69.351 Hemiplegia and hemiparesis following cerebral infarction affecting right dominant side; E78.5 Hyperlipidemia, unspecified; I25.10 Atherosclerotic heart disease of native coronary artery without angina pectoris; I48.91 Unspecified atrial fibrillation; M19.90 Unspecified osteoarthritis, unspecified site; N18.9 Chronic kidney disease, unspecified; E03.9 Hypothyroidism, unspecified; G62.9 Polyneuropathy, unspecified; E66.01 Morbid (severe) obesity due to excess calories; F03.90 Unspecified dementia, unspecified severity, without behavioral disturbance, psychotic disturbance, mood disturbance, and anxiety; Z82.49 Family history of ischemic heart disease and other diseases of the circulatory system; Z95.1 Presence of aortocoronary bypass graft; Z68.37 Body mass index [BMI] 37.0-37.9, adult; N40.1 Benign prostatic hyperplasia with lower urinary tract symptoms
CPT/HCPCS: 36415; 70450; 70551; 71045; 80053; 80061; 81001; 82962; 83880; 84443; 84484; 85025; 93005; G0378; J0696; J1815; J3490

== ENCOUNTER 2022-06-08 13:24 | Inpatient (IN) | payer OTHER ==
[~2022-06-08] VITALS: Ht 188 cm; Wt 97.4 kg
[2022-06-08 14:48] LABS: Eosinophils # (auto) 0.6 10 ^3/uL (0-0.8); Eosinophils % (auto) 10.7 % (0.0-7.0); Hemoglobin 10.4 g/dL (13.5-17.5); Lymphocytes # (auto) 1.3 10 ^3/uL (0.4-5.4); Monocytes # (auto) 0.4 10 ^3/uL (0-1.3); Neutrophils # (auto) 3.5 10 ^3/uL (1.6-8.6); Nucleated Red Blood Cells % 0.1 %
[2022-06-08 14:50] LABS: Basophils # (auto) 0 10 ^3/uL (0-0.2); Basophils % (auto) 0.8 % (0.0-2.0); Hematocrit 31.5 % (41.0-53.0); Mean Corpuscular Hemoglobin 26.5 pg (28.0-32.0); Mean Corpuscular Volume 80.3 fL (80.0-100.0); Monocytes % (auto) 6.6 % (0.0-12.0); Neutrophils % (auto) 59.9 % (37.0-80.0); Red Blood Cells 3.93 10^6/uL (4.5-5.90); Red Cell Distribution Width 16.3 % (11.8-14.3); White Blood Cell 5.8 10^3/uL (4.4-10.8)
[2022-06-08 15:04] LABS: Albumin 3.5 g/dL (3.4-5.0); Magnesium 2.1 mg/dL (1.6-2.6); Potassium 4.2 mmol/L (3.5-5.1)
[2022-06-08 15:06] LABS: Bilirubin, Total 0.5 mg/dL (0.2-1.0)
[2022-06-08] MEDS ORDERED: SODIUM CHLORIDE 0.9% 500 ML IV ONE (15:45)
[2022-06-08] MEDS ORDERED: IOHEXOL 350 MG/ML 100ML IJ ONE (16:32)
[2022-06-08 16:35] LABS: Urine Bacteria FEW /hpf (None Seen); Urine Blood Negative /uL (Negative); Urine Specific Gravity 1.011 (1.001-1.035); Urine WBC 6 /hpf (0 - 3)
[2022-06-08] MEDS ORDERED: NITROGLYCERIN 0.4 MG SL TAB SL PRN (17:00)
[2022-06-08] MEDS ORDERED: AZITHROMYCIN 500MG/ 250ML 250 ML IV ONE (17:00)
[2022-06-08] MEDS ORDERED: cefTRIAXone 1GM/50ML D5W 50 ML IV ONE (17:00)
[2022-06-08] MEDS ORDERED: MORPHINE SULFATE INJ 2 MG/ml SYRG IV PRN (17:00)
[2022-06-08] MEDS ORDERED: hydrALAZINE HCL 20 MG/ML VL IV PRN (17:15)
[2022-06-08 17:31] LABS: Cholesterol 128 mg/dL (< 200); Triglycerides 221 mg/dL (< 150)
[2022-06-08 17:34] LABS: HDL Cholesterol 30 mg/dL (40-59); LDL Cholesterol 74 mg/dL (< 100)
[2022-06-08] MEDS ORDERED: ATOR-47 PO (17:50)
[2022-06-08] MEDS ORDERED: ONDA-144 PO (17:50)
[2022-06-08] MEDS ORDERED: CAR3125T PO (17:50)
[2022-06-08] MEDS ORDERED: LEVO25TA6 PO (17:50)
[2022-06-08] MEDS ORDERED: FAMO-12 PO (17:50)
[2022-06-08] MEDS ORDERED: ALBUTEROL SULF 2.5 MG/0.5ML(0.5%) NEB SOLN NEB PRN (18:15)
[2022-06-08 21:19] VITALS: BP 137/76
[2022-06-08 22:00] VITALS: BP 137/76
[2022-06-08] MEDS: INSULIN LANTUS (GLARGINE) 1 /0.01ml (100units/ml) SC SCH (22:00)
[2022-06-08 23:03] VITALS: BP 123/69
[2022-06-09 05:00] VITALS: BP 120/59
[2022-06-09 06:10] LABS: Eosinophils # (auto) 0.6 10 ^3/uL (0-0.8); Hemoglobin 10.8 g/dL (13.5-17.5); Mean Corpuscular Hgb Conc. 33.6 g/dL (32.0-36.0); Neutrophils # (auto) 3.7 10 ^3/uL (1.6-8.6); White Blood Cell 5.5 10^3/uL (4.4-10.8)
[2022-06-09 06:17] LABS: Basophils # (auto) 0.1 10 ^3/uL (0-0.2); Eosinophils % (auto) 10.8 % (0.0-7.0); Hematocrit 32.1 % (41.0-53.0); Lymphocytes # (auto) 0.7 10 ^3/uL (0.4-5.4); Lymphocytes % (auto) 13.6 % (10.0-50.0); Mean Corpuscular Volume 80.5 fL (80.0-100.0); Monocytes # (auto) 0.4 10 ^3/uL (0-1.3); Monocytes % (auto) 7.1 % (0.0-12.0); Neutrophils % (auto) 67.5 % (37.0-80.0); Nucleated Red Blood Cells % 0.1 %; Red Blood Cells 3.99 10^6/uL (4.5-5.90); Red Cell Distribution Width 16.6 % (11.8-14.3)
[2022-06-09 06:22] LABS: Potassium 3.9 mmol/L (3.5-5.1)
[2022-06-09 06:27] LABS: Albumin 3.4 g/dL (3.4-5.0); BUN/Creatinine Ratio 16.5; Calcium 8.8 mg/dL (8.5-10.1)
[2022-06-09 06:29] LABS: Bilirubin, Total 0.6 mg/dL (0.2-1.0); Total Protein 6.7 g/dL (6.4-8.2)
[2022-06-09 09:00] VITALS: BP 106/65
[2022-06-09] MEDS: cefTRIAXone 1GM/50ML D5W 50 ML IV SCH (09:19)
[2022-06-09] MEDS ORDERED: DEXTROSE (50%) 50ML SYRG IV PRN (09:30)
[2022-06-09] MEDS ORDERED: AZITHROMYCIN 500MG/ 250ML 250 ML IV SCH (10:00)
[2022-06-09] MEDS ORDERED: ENOXAPARIN SOD 40 MG/0.4 ML SYRINGE SC SCH (10:00)
[2022-06-09] MEDS: CITALOPRAM HYDROBR 20 MG TAB PO SCH (12:04)
[2022-06-09] MEDS: ASPirin 81 mg TAB PO SCH (12:04)
[2022-06-09] MEDS: POTASSIUM CHL 10 Meq TABLET PO SCH (12:05)
[2022-06-09] MEDS: FINASTERIDE 5 MG TAB PO SCH (12:05)
[2022-06-09] MEDS: InsuLIN REG 1unit/0.01ml Soln (100units/ml) SC SCH ×3 (12:06→21:32)
[2022-06-09] MEDS: ACCU-CHEK COMFORT CURVE STRIP VI SCH ×3 (12:06→21:34)
[2022-06-09] MEDS: FUROSEMIDE 20 MG TAB PO SCH (12:08)
[2022-06-09 12:53] VITALS: BP 121/73
[2022-06-09 16:37] VITALS: BP 117/74
[2022-06-09] MEDS: TAMSULOSIN HYDROCHLORIDE 0.4 MG CAP PO SCH (18:26)
[2022-06-09] MEDS: INSULIN LANTUS (GLARGINE) 1 /0.01ml (100units/ml) SC SCH (21:33)
[2022-06-09] MEDS: traZODone HCL 50 MG TAB PO SCH (21:34)
[2022-06-09] MEDS: ATORVASTATIN 20 MG TAB PO SCH (21:34)
[2022-06-09 21:51] VITALS: BP 121/54
[2022-06-10 04:56] VITALS: BP 93/50
[2022-06-10 05:43] LABS: BUN/Creatinine Ratio 16.9; Potassium 3.9 mmol/L (3.5-5.1)
[2022-06-10 05:46] LABS: % Iron Saturation 8.2 % (20-55)
[2022-06-10] MEDS: ACCU-CHEK COMFORT CURVE STRIP VI SCH ×4 (05:59→22:34)
[2022-06-10] MEDS: LEVOTHYROXINE SODIUM 112 MCG TAB PO SCH (06:27)
[2022-06-10] MEDS: InsuLIN REG 1unit/0.01ml Soln (100units/ml) SC SCH ×4 (06:38→22:40)
[2022-06-10 09:00] VITALS: BP 120/54
[2022-06-10] MEDS: ASPirin 81 mg TAB PO SCH (10:13)
[2022-06-10] MEDS: POTASSIUM CHL 10 Meq TABLET PO SCH (10:14)
[2022-06-10] MEDS: CITALOPRAM HYDROBR 20 MG TAB PO SCH (10:14)
[2022-06-10] MEDS: FUROSEMIDE 20 MG TAB PO SCH (10:15)
[2022-06-10] MEDS: FINASTERIDE 5 MG TAB PO SCH (10:15)
[2022-06-10] MEDS: cefTRIAXone 1GM/50ML D5W 50 ML IV SCH (11:10)
[2022-06-10 13:00] VITALS: BP 106/46
[2022-06-10 16:57] VITALS: BP 105/46
[2022-06-10] MEDS: TAMSULOSIN HYDROCHLORIDE 0.4 MG CAP PO SCH (18:04)
[2022-06-10 22:00] VITALS: BP 105/47
[2022-06-10] MEDS: traZODone HCL 50 MG TAB PO SCH (22:34)
[2022-06-10] MEDS: ATORVASTATIN 20 MG TAB PO SCH (22:34)
[2022-06-10] MEDS: INSULIN LANTUS (GLARGINE) 1 /0.01ml (100units/ml) SC SCH (22:40)
[2022-06-11 05:00] VITALS: BP 92/54
[2022-06-11] MEDS: ACCU-CHEK COMFORT CURVE STRIP VI SCH ×4 (06:17→22:14)
[2022-06-11] MEDS: InsuLIN REG 1unit/0.01ml Soln (100units/ml) SC SCH ×4 (06:28→22:14)
[2022-06-11] MEDS: LEVOTHYROXINE SODIUM 112 MCG TAB PO SCH (06:38)
[2022-06-11] MEDS: cefTRIAXone 1GM/50ML D5W 50 ML IV SCH (08:58)
[2022-06-11] MEDS: ASPirin 81 mg TAB PO SCH (08:58)
[2022-06-11] MEDS: POTASSIUM CHL 10 Meq TABLET PO SCH (08:59)
[2022-06-11 09:00] VITALS: BP 115/40
[2022-06-11] MEDS: FINASTERIDE 5 MG TAB PO SCH (09:01)
[2022-06-11] MEDS: CITALOPRAM HYDROBR 20 MG TAB PO SCH (09:01)
[2022-06-11] MEDS: FUROSEMIDE 20 MG TAB PO SCH ×2 (09:01→10:00)
[2022-06-11 10:52] VITALS: BP 106/67
[2022-06-11 13:00] VITALS: BP 91/58
[2022-06-11 17:00] VITALS: BP 86/44
[2022-06-11] MEDS: TAMSULOSIN HYDROCHLORIDE 0.4 MG CAP PO SCH (17:01)
[2022-06-11 22:00] VITALS: BP 106/66
[2022-06-11] MEDS: ATORVASTATIN 20 MG TAB PO SCH (22:13)
[2022-06-11] MEDS: traZODone HCL 50 MG TAB PO SCH (22:13)
[2022-06-11] MEDS: INSULIN LANTUS (GLARGINE) 1 /0.01ml (100units/ml) SC SCH (22:15)
[2022-06-12 05:00] VITALS: BP 110/51
[2022-06-12] MEDS: LEVOTHYROXINE SODIUM 112 MCG TAB PO SCH (06:41)
[2022-06-12] MEDS: ACCU-CHEK COMFORT CURVE STRIP VI SCH (06:41)
[2022-06-12] MEDS: InsuLIN REG 1unit/0.01ml Soln (100units/ml) SC SCH (06:43)
[2022-06-12 07:32] LABS: BUN/Creatinine Ratio 19.8; Calcium 9.1 mg/dL (8.5-10.1); Potassium 4.1 mmol/L (3.5-5.1)
[2022-06-12 09:00] VITALS: BP 104/58
[2022-06-12 10:06] VITALS: BP 87/50
[2022-06-12] MEDS ORDERED: FUR20T PO (10:06)
[2022-06-12] MEDS ORDERED: CEFU500T43 PO (10:06)
[2022-06-12] MEDS ORDERED: CYANOCOBALAMIN (B-12) 1000 MCG/1 ML VIAL SUBCUT ONE (10:15)
[2022-06-12] MEDS: FINASTERIDE 5 MG TAB PO SCH (10:18)
[2022-06-12] MEDS: cefTRIAXone 1GM/50ML D5W 50 ML IV SCH (10:19)
[2022-06-12] MEDS: ASPirin 81 mg TAB PO SCH (10:19)
[2022-06-12] MEDS: CITALOPRAM HYDROBR 20 MG TAB PO SCH (10:19)
[2022-06-12] MEDS: POTASSIUM CHL 10 Meq TABLET PO SCH (10:19)
[2022-06-12] MEDS: FUROSEMIDE 20 MG TAB PO SCH (10:20)
[2022-06-12] MEDS ORDERED: CYAN100088 PO (10:20)
== END 2022-06-12 10:38 | disposition hospice, home (50) | DRG 291 ==
LOC: ER 13:24 → TELE-CENTR 16:52
PROVIDERS: ADMIT Internal Medicine; ATTEND Internal Medicine
DX: I11.0 Hypertensive heart disease with heart failure (principal); I50.33 Acute on chronic diastolic (congestive) heart failure; J18.9 Pneumonia, unspecified organism; N39.0 Urinary tract infection, site not specified; J91.8 Pleural effusion in other conditions classified elsewhere; I95.9 Hypotension, unspecified; D63.8 Anemia in other chronic diseases classified elsewhere; E07.9 Disorder of thyroid, unspecified; I48.91 Unspecified atrial fibrillation; E11.65 Type 2 diabetes mellitus with hyperglycemia; E78.5 Hyperlipidemia, unspecified; I25.10 Atherosclerotic heart disease of native coronary artery without angina pectoris; E03.9 Hypothyroidism, unspecified; E53.8 Deficiency of other specified B group vitamins; F03.90 Unspecified dementia, unspecified severity, without behavioral disturbance, psychotic disturbance, mood disturbance, and anxiety; N40.0 Benign prostatic hyperplasia without lower urinary tract symptoms; Z51.5 Encounter for palliative care; Z82.49 Family history of ischemic heart disease and other diseases of the circulatory system; Z86.73 Personal history of transient ischemic attack (TIA), and cerebral infarction without residual deficits; Z95.1 Presence of aortocoronary bypass graft; Z79.4 Long term (current) use of insulin
CPT/HCPCS: 36415; 71045; 71275; 80048; 80053; 80061; 81001; 82607; 82962; 83036; 83540; 83550; 83605; 83735; 83880; 84443; 84484; 85025; 85379; 87086; 93005; 96361; 96365; 96367; 97163; G0378; J0696; J1815

== ENCOUNTER 2022-07-02 22:23 | Inpatient (IN) | payer OTHER ==
[~2022-07-02] VITALS: Ht 182.9 cm; Wt 112.8 kg
[~2022-07-02 22:23] MED LIST changes: +CEFU500T43 PO; +CYAN100088 PO; +FUR20T PO
[2022-07-03 00:16] LABS: Urine Bacteria NONE SEEN /hpf (None Seen); Urine Blood Negative /uL (Negative); Urine Specific Gravity 1.008 (1.001-1.035); Urine WBC 11 /hpf (0 - 3)
[2022-07-03 00:21] LABS: Basophils # (auto) 0.1 10 ^3/uL (0-0.2); Eosinophils # (auto) 0.5 10 ^3/uL (0-0.8); Hemoglobin 11.2 g/dL (13.5-17.5); Mean Corpuscular Hemoglobin 24.6 pg (28.0-32.0); Monocytes # (auto) 0.4 10 ^3/uL (0-1.3); Neutrophils # (auto) 3.8 10 ^3/uL (1.6-8.6); Red Blood Cells 4.56 10^6/uL (4.5-5.90); White Blood Cell 5.9 10^3/uL (4.4-10.8)
[2022-07-03 00:23] LABS: Eosinophils % (auto) 7.7 % (0.0-7.0); Hematocrit 35.8 % (41.0-53.0); Lymphocytes # (auto) 1.2 10 ^3/uL (0.4-5.4); Lymphocytes % (auto) 20.2 % (10.0-50.0); Mean Corpuscular Hgb Conc. 31.4 g/dL (32.0-36.0); Mean Corpuscular Volume 78.5 fL (80.0-100.0); Monocytes % (auto) 6.7 % (0.0-12.0); Neutrophils % (auto) 64.4 % (37.0-80.0); Nucleated Red Blood Cells % 0.1 %; Red Cell Distribution Width 17.2 % (11.8-14.3)
[2022-07-03 00:56] LABS: Albumin 3.8 g/dL (3.4-5.0); BUN/Creatinine Ratio 25.7; Calcium 9.1 mg/dL (8.5-10.1); Potassium 4.3 mmol/L (3.5-5.1)
[2022-07-03 01:00] LABS: Bilirubin, Total 0.3 mg/dL (0.2-1.0); Total Protein 7.3 g/dL (6.4-8.2)
[2022-07-03] MEDS ORDERED: InsuLIN REG 1unit/0.01ml Soln (100units/ml) IV ONE (03:15)
[2022-07-03] MEDS ORDERED: ACETAMINOPHEN 325 MG TAB PO PRN (10:00)
[2022-07-03] MEDS: LEVOTHYROXINE SODIUM 100 MCG/5 ML INJ IV SCH (10:00)
[2022-07-03] MEDS ORDERED: CYANOCOBALAMIN (B-12) 1000 MCG/1 ML VIAL IM ONE (10:00)
[2022-07-03] MEDS ORDERED: MORPHINE SULFATE INJ 2 MG/ml SYRG IV PRN ×2 (10:00)
[2022-07-03] MEDS ORDERED: NITROGLYCERIN 0.4 MG SL TAB SL PRN (10:00)
[2022-07-03] MEDS ORDERED: ONDANSETRON HCL 4 MG/2 ML VIAL IV PRN (10:00)
[2022-07-03] MEDS ORDERED: ALUM & MAG HYDROX-SIMETH LIQ(MAALOX) 30 ML PO PRN (10:00)
[2022-07-03] MEDS ORDERED: DEXTROSE (50%) 50ML SYRG IV PRN (10:00)
[2022-07-03] MEDS: INSULIN LANTUS (GLARGINE) 1 /0.01ml (100units/ml) SC SCH ×2 (10:00→23:16)
[2022-07-03] MEDS ORDERED: HYDROcodone-ACET 5/325MG TAB PO PRN (10:00)
[2022-07-03] MEDS ORDERED: CEFTRIAXONE SODIUM 2 GM in D5W 5% 50 ML IV ONE (10:00)
[2022-07-03 11:17] LABS: Urine Bacteria NONE SEEN /hpf (None Seen); Urine Blood Negative /uL (Negative); Urine Hyaline Cast FEW /lpf (0 - 2); Urine Specific Gravity 1.011 (1.001-1.035); Urine WBC 13 /hpf (0 - 3)
[2022-07-03] MEDS: InsuLIN REG 1unit/0.01ml Soln (100units/ml) SC SCH ×3 (11:24→23:15)
[2022-07-03] MEDS: ACCU-CHEK COMFORT CURVE STRIP VI SCH ×3 (11:25→23:16)
[2022-07-03] MEDS: SODIUM CHLOR 0.9% PF (SALINE LOCK) 10ML VIAL/SYR IV SCH ×2 (11:25→23:16)
[2022-07-03 20:24] LABS: Folate (Folic Acid) 4.73 ng/mL (5.38-24)
[2022-07-03] MEDS ORDERED: CYAN100042 PO (22:33)
[2022-07-04 00:45] VITALS: BP 120/74
[2022-07-04 05:00] VITALS: BP 120/71
[2022-07-04] MEDS: ACCU-CHEK COMFORT CURVE STRIP VI SCH ×4 (06:06→21:34)
[2022-07-04] MEDS: SODIUM CHLOR 0.9% PF (SALINE LOCK) 10ML VIAL/SYR IV SCH ×3 (06:06→21:30)
[2022-07-04 06:13] LABS: Basophils # (auto) 0 10 ^3/uL (0-0.2); Basophils % (auto) 0.6 % (0.0-2.0); Eosinophils # (auto) 0.4 10 ^3/uL (0-0.8); Eosinophils % (auto) 9.2 % (0.0-7.0); Hematocrit 34.8 % (41.0-53.0); Hemoglobin 11.1 g/dL (13.5-17.5); Lymphocytes # (auto) 1.5 10 ^3/uL (0.4-5.4); Lymphocytes % (auto) 31.1 % (10.0-50.0); Mean Corpuscular Hemoglobin 24.5 pg (28.0-32.0); Mean Corpuscular Hgb Conc. 31.9 g/dL (32.0-36.0); Mean Corpuscular Volume 76.9 fL (80.0-100.0); Monocytes # (auto) 0.3 10 ^3/uL (0-1.3); Monocytes % (auto) 6.8 % (0.0-12.0); Neutrophils # (auto) 2.6 10 ^3/uL (1.6-8.6); Neutrophils % (auto) 52.3 % (37.0-80.0); Nucleated Red Blood Cells % 0.1 %; Red Blood Cells 4.52 10^6/uL (4.5-5.90); Red Cell Distribution Width 17.1 % (11.8-14.3); White Blood Cell 4.9 10^3/uL (4.4-10.8)
[2022-07-04] MEDS: InsuLIN REG 1unit/0.01ml Soln (100units/ml) SC SCH ×4 (06:16→21:35)
[2022-07-04 06:37] LABS: Albumin 3.4 g/dL (3.4-5.0); Calcium 8.7 mg/dL (8.5-10.1); Potassium 3.8 mmol/L (3.5-5.1)
[2022-07-04 06:38] LABS: BUN/Creatinine Ratio 24.8
[2022-07-04 06:42] LABS: Bilirubin, Total 0.4 mg/dL (0.2-1.0); Total Protein 6.7 g/dL (6.4-8.2)
[2022-07-04 06:54] LABS: Free T4 (Free Thyroxine) 0.27 ng/dL (0.89-1.76)
[2022-07-04] MEDS: cefTRIAXone 1GM/50ML D5W 50 ML IV SCH (08:46)
[2022-07-04] MEDS: INSULIN LANTUS (GLARGINE) 1 /0.01ml (100units/ml) SC SCH ×2 (08:47→21:34)
[2022-07-04 08:49] VITALS: BP 105/51
[2022-07-04] MEDS: LEVOTHYROXINE SODIUM 100 MCG/5 ML INJ IV SCH (09:40)
[2022-07-04] MEDS ORDERED: CYANOCOBALAMIN (B-12) 1000 MCG/1 ML VIAL IM ONE (10:00)
[2022-07-04] MEDS ORDERED: ASPirin 81 mg TAB PO ONE (11:15)
[2022-07-04] MEDS ORDERED: FINASTERIDE 5 MG TAB PO ONE (11:15)
[2022-07-04] MEDS ORDERED: CYANOCOBALAMIN 500 MCG TAB PO ONE (11:15)
[2022-07-04] MEDS ORDERED: LEVOTHYROXINE SODIUM 112 MCG TAB PO ONE (11:15)
[2022-07-04 13:00] VITALS: BP 136/66
[2022-07-04 17:00] VITALS: BP 126/72
[2022-07-04] MEDS: TAMSULOSIN HYDROCHLORIDE 0.4 MG CAP PO SCH (18:27)
[2022-07-04] MEDS: ATORVASTATIN 20 MG TAB PO SCH (21:30)
[2022-07-04 22:00] VITALS: BP 119/70
[2022-07-05 05:00] VITALS: BP 107/68
[2022-07-05 05:49] LABS: BUN/Creatinine Ratio 24.1; Calcium 8.7 mg/dL (8.5-10.1)
[2022-07-05] MEDS: SODIUM CHLOR 0.9% PF (SALINE LOCK) 10ML VIAL/SYR IV SCH ×3 (06:11→21:41)
[2022-07-05] MEDS: LEVOTHYROXINE SODIUM 112 MCG TAB PO SCH (06:28)
[2022-07-05] MEDS: InsuLIN REG 1unit/0.01ml Soln (100units/ml) SC SCH ×5 (06:29→21:46)
[2022-07-05] MEDS: ACCU-CHEK COMFORT CURVE STRIP VI SCH ×4 (06:29→21:45)
[2022-07-05 08:00] VITALS: BP_SYST 105; BP_SYST 126; BP_DIAS 67; BP_DIAS 72
[2022-07-05] MEDS: INSULIN LANTUS (GLARGINE) 1 /0.01ml (100units/ml) SC SCH ×2 (10:00→21:45)
[2022-07-05] MEDS ORDERED: FLUCONAZOLE 100 MG TAB PO ONE (11:30)
[2022-07-05] MEDS: cefTRIAXone 1GM/50ML D5W 50 ML IV SCH (12:15)
[2022-07-05] MEDS: ASPirin 81 mg TAB PO SCH (12:15)
[2022-07-05] MEDS: CYANOCOBALAMIN 500 MCG TAB PO SCH (12:16)
[2022-07-05] MEDS: FINASTERIDE 5 MG TAB PO SCH (12:16)
[2022-07-05 13:00] VITALS: BP 117/66
[2022-07-05 17:07] VITALS: BP 109/60
[2022-07-05] MEDS: TAMSULOSIN HYDROCHLORIDE 0.4 MG CAP PO SCH (18:42)
[2022-07-05 20:00] VITALS: BP 118/57
[2022-07-05] MEDS: ATORVASTATIN 20 MG TAB PO SCH (21:41)
[2022-07-05 22:00] VITALS: BP 118/57
[2022-07-06 05:00] VITALS: BP 115/63
[2022-07-06] MEDS: SODIUM CHLOR 0.9% PF (SALINE LOCK) 10ML VIAL/SYR IV SCH ×2 (06:04→14:00)
[2022-07-06] MEDS: ACCU-CHEK COMFORT CURVE STRIP VI SCH ×2 (06:24→12:29)
[2022-07-06] MEDS: InsuLIN REG 1unit/0.01ml Soln (100units/ml) SC SCH ×2 (06:26→12:27)
[2022-07-06] MEDS: LEVOTHYROXINE SODIUM 112 MCG TAB PO SCH (06:29)
[2022-07-06 08:15] VITALS: BP 117/69
[2022-07-06 09:14] VITALS: BP 117/69
[2022-07-06] MEDS ORDERED: FLUCONAZOLE 100 MG TAB PO SCH (10:00)
[2022-07-06] MEDS: FINASTERIDE 5 MG TAB PO SCH (10:18)
[2022-07-06] MEDS: CYANOCOBALAMIN 500 MCG TAB PO SCH (10:18)
[2022-07-06] MEDS: ASPirin 81 mg TAB PO SCH (10:18)
[2022-07-06] MEDS: cefTRIAXone 1GM/50ML D5W 50 ML IV SCH (10:19)
[2022-07-06] MEDS: INSULIN LANTUS (GLARGINE) 1 /0.01ml (100units/ml) SC SCH (10:36)
[2022-07-06 11:52] VITALS: BP 106/62
[2022-07-06] MEDS ORDERED: ASPI-543 PO (12:32)
[2022-07-06] MEDS ORDERED: CYAN100088 PO (12:32)
[2022-07-06] MEDS ORDERED: TAM04C PO (12:35)
[2022-07-06] MEDS ORDERED: LEVO112T4 PO (12:35)
[2022-07-06] MEDS ORDERED: CEFU500T43 PO (12:35)
[2022-07-06] MEDS ORDERED: ESCI-28 PO (12:35)
[2022-07-06] MEDS ORDERED: LOSA25TA38 PO (12:35)
[2022-07-06] MEDS ORDERED: HYDR50TA69 PO (12:35)
[2022-07-06] MEDS ORDERED: GLIP5TAB12 PO (12:35)
[2022-07-06] MEDS ORDERED: INSLANTI SC (12:35)
[2022-07-06] MEDS ORDERED: FUR20T PO (12:35)
[2022-07-06] MEDS ORDERED: FINA5TAB4 PO (12:35)
[2022-07-06 13:38] VITALS: BP 106/62
== END 2022-07-06 16:00 | disposition home or self-care (01) | DRG 92 ==
LOC: ER 22:23 → EDBD 22:23 → TELE 07-03 09:59 → TELE-EAST 07-03 23:14 → EAST 07-04 14:04
PROVIDERS: ADMIT Internal Medicine; ATTEND Internal Medicine
PROC: 05HA33Z Insertion of Infusion Device into Left Brachial Vein, Percutaneous Approach (ICD-10-PCS; principal; 2022-07-03)
PROC: B54NZZA Ultrasonography of Left Upper Extremity Veins, Guidance (ICD-10-PCS; 2022-07-03)
DX: G92.8 Other toxic encephalopathy (principal); I13.0 Hypertensive heart and chronic kidney disease with heart failure and stage 1 through stage 4 chronic kidney disease, or unspecified chronic kidney disease; I50.32 Chronic diastolic (congestive) heart failure; N30.00 Acute cystitis without hematuria; I25.10 Atherosclerotic heart disease of native coronary artery without angina pectoris; E11.65 Type 2 diabetes mellitus with hyperglycemia; E03.9 Hypothyroidism, unspecified; E53.8 Deficiency of other specified B group vitamins; N18.30 Chronic kidney disease, stage 3 unspecified; N40.0 Benign prostatic hyperplasia without lower urinary tract symptoms; Z20.822 Contact with and (suspected) exposure to COVID-19; E11.22 Type 2 diabetes mellitus with diabetic chronic kidney disease; F03.90 Unspecified dementia, unspecified severity, without behavioral disturbance, psychotic disturbance, mood disturbance, and anxiety
CPT/HCPCS: 36415; 70450; 71045; 80048; 80053; 81001; 82306; 82607; 82746; 82962; 83880; 84439; 84443; 84484; 85025; 87086; 87088; 87186; 93005; 96372; 96374; 96375; 97110; 97116; 97163; 97530; G0378; J0696; J1815; J3490; J7060

== ENCOUNTER 2024-05-19 17:10 | Inpatient (IN) | payer OTHER ==
[~2024-05-19] VITALS: Ht 177.8 cm; Wt 98.0 kg
[~2024-05-19 17:10] MED LIST changes: -ESCI-28 PO; +ESCI1TAB36 PO; -GLIP5TAB12 PO; +GLIP5TAB21 PO; +LOSA-533 PO; -LOSA25TA38 PO; -TAM04C PO; +TAMS-35 PO; -TRAZ-181 PO
[2024-05-19 18:46] LABS: Basophils # (auto) 0 10 ^3/uL (0-0.2); Eosinophils # (auto) 0.4 10 ^3/uL (0-0.8); Monocytes # (auto) 0.5 10 ^3/uL (0-1.3); Neutrophils # (auto) 4.6 10 ^3/uL (1.6-8.6)
[2024-05-19 18:48] LABS: Basophils % (auto) 0.4 % (0.0-2.0); Eosinophils % (auto) 6.2 % (0.0-7.0); Hematocrit 32.4 % (41.0-53.0); Lymphocytes % (auto) 15.5 % (10.0-50.0); Mean Corpuscular Hemoglobin 26.9 pg (28.0-32.0); Mean Corpuscular Volume 79.1 fL (80.0-100.0); Monocytes % (auto) 6.9 % (0.0-12.0); Nucleated Red Blood Cells % 0.4 %; Red Cell Distribution Width 18.3 % (11.8-14.3); White Blood Cell 6.6 10^3/uL (4.4-10.8)
[2024-05-19 18:56] LABS: Alanine Aminotransferase 26 U/L (7-40); Albumin 4.3 g/dL (3.2-4.8); Alkaline Phosphatase 79 U/L (46-116); Anion Gap 10 (5-15); Aspartate Aminotransferase 48 U/L (13-40); BUN/Creatinine Ratio 12.9 (10.0-20.0); Blood Urea Nitrogen 24 mg/dL (9-23); Calcium 9.1 mg/dL (8.5-10.1); Carbon Dioxide 22 mmol/L (20-30); Chloride 101 mmol/L (98-107); Glucose 127 mg/dL (74-106); Potassium 3.5 mmol/L (3.5-5.1); Sodium 133 mmol/L (136-145)
[2024-05-19 18:57] LABS: Bilirubin, Total 0.9 mg/dL (0.2-1.0); Total Protein 6.9 g/dL (5.7-8.2)
[2024-05-19 20:50] VITALS: PULSE 68; RESP 16; O2SAT 98
[2024-05-19] MEDS: SODIUM CHLORIDE 0.9% 500 ML IV ONE (21:06)
[2024-05-19] MEDS: VANCOMYCIN 1GM/200ML 200 ML IV ONE (21:07)
[2024-05-19] MEDS ORDERED: ONDANSETRON HCL 4 MG/2 ML VIAL IV PRN (22:00)
[2024-05-19] MEDS ORDERED: DEXTROSE (50%) 50ML SYRG IV PRN (22:00)
[2024-05-19] MEDS: ACCU-CHEK COMFORT CURVE STRIP VI SCH (22:38)
[2024-05-19] MEDS: InsuLIN REG 1unit/0.01ml Soln (100units/ml) SC SCH (22:51)
[2024-05-20] VITALS (10 sets, daily range): BP systolic 99–110; BP diastolic 54–64; PULSE 58–75; RESP 16–20; TEMP 97.8–98.1; O2SAT 92–98
[2024-05-20] MEDS: CLINDAMYCIN 600MG IV 50 ML IV SCH (00:17)
[2024-05-20] MEDS: cefTRIAXone 1GM/50ML D5W 50 ML IV SCH (00:27)
[2024-05-20] MEDS: LEVOTHYROXINE SODIUM 112 MCG TAB PO SCH (05:20)
[2024-05-20 06:33] LABS: Anion Gap 9 (5-15); Basophils # (auto) 0 10 ^3/uL (0-0.2); Carbon Dioxide 21 mmol/L (20-30); Chloride 102 mmol/L (98-107); Eosinophils # (auto) 0.4 10 ^3/uL (0-0.8); Hematocrit 33.1 % (41.0-53.0); Monocytes # (auto) 0.5 10 ^3/uL (0-1.3); Neutrophils % (auto) 71.5 % (37.0-80.0); Potassium 3.1 mmol/L (3.5-5.1); Red Cell Distribution Width 18.7 % (11.8-14.3); Sodium 132 mmol/L (136-145)
[2024-05-20 06:35] LABS: Basophils % (auto) 0.6 % (0.0-2.0); Hemoglobin 11.1 g/dL (13.5-17.5); Lymphocytes # (auto) 0.9 10 ^3/uL (0.4-5.4); Lymphocytes % (auto) 14.3 % (10.0-50.0); Mean Corpuscular Hemoglobin 26.7 pg (28.0-32.0); Mean Corpuscular Hgb Conc. 33.4 g/dL (32.0-36.0); Mean Corpuscular Volume 79.9 fL (80.0-100.0); Monocytes % (auto) 7.6 % (0.0-12.0); Neutrophils # (auto) 4.7 10 ^3/uL (1.6-8.6); Nucleated Red Blood Cells % 0.2 %; Red Blood Cells 4.15 10^6/uL (4.5-5.90); White Blood Cell 6.5 10^3/uL (4.4-10.8)
[2024-05-20 06:39] LABS: Blood Urea Nitrogen 22 mg/dL (9-23); Glucose 171 mg/dL (74-106)
[2024-05-20 06:40] LABS: Calcium 8.8 mg/dL (8.5-10.1)
[2024-05-20] MEDS: FUROSEMIDE 20 MG TAB PO SCH (11:57)
[2024-05-20] MEDS: ASPirin 81 mg TAB PO SCH (11:57)
[2024-05-20] MEDS: FINASTERIDE 5 MG TAB PO SCH (12:03)
[2024-05-20] MEDS: HYDROcodone-ACET 5/325MG TAB PO PRN (17:46)
[2024-05-21] VITALS (7 sets, daily range): BP systolic 92–125; BP diastolic 52–68; PULSE 55–64; RESP 15–19; TEMP 97.7–98.5; O2SAT 90–98
[2024-05-21 09:40] LABS: Basophils # (auto) 0.1 10 ^3/uL (0-0.2); Basophils % (auto) 0.8 % (0.0-2.0); Eosinophils # (auto) 0.5 10 ^3/uL (0-0.8); Eosinophils % (auto) 6.5 % (0.0-7.0); Hematocrit 35.8 % (41.0-53.0); Hemoglobin 11.5 g/dL (13.5-17.5); Lymphocytes % (auto) 13.9 % (10.0-50.0); Mean Corpuscular Hemoglobin 27.2 pg (28.0-32.0); Mean Corpuscular Hgb Conc. 32.2 g/dL (32.0-36.0); Mean Corpuscular Volume 84.5 fL (80.0-100.0); Monocytes # (auto) 0.5 10 ^3/uL (0-1.3); Monocytes % (auto) 6.7 % (0.0-12.0); Neutrophils # (auto) 5.2 10 ^3/uL (1.6-8.6); Neutrophils % (auto) 72.1 % (37.0-80.0); Nucleated Red Blood Cells % 0.1 %; Red Blood Cells 4.24 10^6/uL (4.5-5.90); Red Cell Distribution Width 19.3 % (11.8-14.3); White Blood Cell 7.2 10^3/uL (4.4-10.8)
[2024-05-21 09:55] LABS: INR 1.13 (0.9-1.15); Prothrombin Time 11.9 sec (9.3-11.8)
[2024-05-21 09:56] LABS: Alanine Aminotransferase 22 U/L (7-40); Albumin 3.9 g/dL (3.2-4.8); Alkaline Phosphatase 75 U/L (46-116); Anion Gap 9 (5-15); Aspartate Aminotransferase 43 U/L (13-40); BUN/Creatinine Ratio 11.7 (10.0-20.0); Blood Urea Nitrogen 19 mg/dL (9-23); Calcium 8.8 mg/dL (8.5-10.1); Carbon Dioxide 21 mmol/L (20-30); Chloride 104 mmol/L (98-107); Glucose 181 mg/dL (74-106); Sodium 134 mmol/L (136-145)
[2024-05-21 09:57] LABS: Bilirubin, Total 0.4 mg/dL (0.2-1.0); Total Protein 6.7 g/dL (5.7-8.2)
[2024-05-22] VITALS (12 sets, daily range): BP systolic 99–141; BP diastolic 55–91; PULSE 59–125; RESP 12–20; TEMP 97.4–98.2; O2SAT 90–98
[2024-05-22] MEDS: LIDOCAINE 2%HCL (LOCAL ANESTH.) INJ 20ML MDV ONE (12:32)
[2024-05-22] MEDS: IODIXANOL 320MG/ML 100ML BTL IV ONE (12:32)
[2024-05-22] MEDS: fentaNYL CITRATE 100 MCG/2 ML VL ONE (13:12)
[2024-05-22] MEDS: MIDAZOLAM HCL 2MG/2ML 2ml VIAL (1mg/ml) ONE (13:12)
[2024-05-22] MEDS: HEPARIN SODIUM (PORCINE) 5000 UNITS/ML 1ML VIAL ONE (13:12)
[2024-05-23 05:00] VITALS: BP 122/69; PULSE 68; RESP 18; TEMP 97.8; O2SAT 99
[2024-05-23 09:00] VITALS: BP 118/73; PULSE 84; RESP 20; TEMP 97.7; O2SAT 95
[2024-05-23 11:24] LABS: Eosinophils # (auto) 0.5 10 ^3/uL (0-0.8); Hemoglobin 11.9 g/dL (13.5-17.5); Monocytes # (auto) 0.5 10 ^3/uL (0-1.3); Neutrophils # (auto) 4.9 10 ^3/uL (1.6-8.6); Nucleated Red Blood Cells % 0.1 %
[2024-05-23 11:26] LABS: Basophils # (auto) 0 10 ^3/uL (0-0.2); Basophils % (auto) 0.7 % (0.0-2.0); Eosinophils % (auto) 6.6 % (0.0-7.0); Hematocrit 36.2 % (41.0-53.0); Lymphocytes # (auto) 0.9 10 ^3/uL (0.4-5.4); Lymphocytes % (auto) 13.8 % (10.0-50.0); Mean Corpuscular Hgb Conc. 32.9 g/dL (32.0-36.0); Monocytes % (auto) 7.3 % (0.0-12.0); Neutrophils % (auto) 71.6 % (37.0-80.0); Red Blood Cells 4.42 10^6/uL (4.5-5.90); Red Cell Distribution Width 18.8 % (11.8-14.3); White Blood Cell 6.9 10^3/uL (4.4-10.8)
[2024-05-23 11:43] LABS: Alanine Aminotransferase 24 U/L (7-40); Albumin 4.2 g/dL (3.2-4.8); Alkaline Phosphatase 85 U/L (46-116); Anion Gap 9 (5-15); Aspartate Aminotransferase 37 U/L (13-40); BUN/Creatinine Ratio 10.4 (10.0-20.0); Bilirubin, Total 0.5 mg/dL (0.2-1.0); Blood Urea Nitrogen 16 mg/dL (9-23); Calcium 9.2 mg/dL (8.5-10.1); Carbon Dioxide 23 mmol/L (20-30); Chloride 100 mmol/L (98-107); Glucose 223 mg/dL (74-106); Sodium 132 mmol/L (136-145); Total Protein 7.1 g/dL (5.7-8.2)
[2024-05-23] MEDS: POTASSIUM EFFERVESENT TAB 25 MEQ PO ONE (14:30)
[2024-05-23] MEDS: SODIUM CHLORIDE 0.9% 1,000 ML IV SCH (14:30)
[2024-05-23 16:06] VITALS: BP 113/57; PULSE 62; RESP 17; TEMP 98.4; O2SAT 92
[2024-05-23 21:48] VITALS: BP 109/62; PULSE 64; RESP 20; TEMP 98.2; O2SAT 94
[2024-05-24 01:00] VITALS: BP 127/61; PULSE 61; RESP 18; O2SAT 96
[2024-05-24 05:00] VITALS: BP 125/65; PULSE 61; RESP 18; TEMP 97.7; O2SAT 92
[2024-05-24 06:32] LABS: INR 1.1 (0.9-1.15); Partial Thromboplastin Time 28.7 SEC (24.5-34.5); Prothrombin Time 11.6 sec (9.3-11.8)
[2024-05-24 09:00] VITALS: BP 105/54; PULSE 63; RESP 18; TEMP 97.6; O2SAT 93
[2024-05-24 10:11] LABS: Urine Bacteria None Seen /hpf (None Seen)
[2024-05-24 10:24] LABS: Urine Blood TRACE /uL (Negative); Urine Clarity Clear (Clear); Urine Color Light-Yellow (Yellow); Urine Protein, UAD TRACE (Negative); Urine Specific Gravity 1.015 (1.001-1.035); Urine Urobilinogen Normal (Negative); Urine WBC 13 /hpf (0 - 3)
[2024-05-24] MEDS: levoFLOXacin 500MG 100 ML IV ONE (12:41)
[2024-05-24 13:00] VITALS: BP 102/60; PULSE 73; RESP 18; TEMP 97.5; O2SAT 91
[2024-05-24 16:54] VITALS: BP 121/69; PULSE 64; RESP 18; TEMP 97.3; O2SAT 94
[2024-05-24 22:00] VITALS: BP 121/65; PULSE 71; RESP 17; TEMP 98.3; O2SAT 95
[2024-05-24] MEDS: DOCUSATE SOD 100 MG CAP PO ONE (23:28)
[2024-05-25] VITALS (8 sets, daily range): BP systolic 104–153; BP diastolic 63–82; PULSE 60–88; RESP 12–21; TEMP 97.8–98.5; O2SAT 90–99
[2024-05-25] MEDS: levoFLOXacin 500MG 100 ML IV SCH (11:22)
[2024-05-25] MEDS ORDERED: LIDOCAINE 1% HCL (LOCAL ANESTH.) INJ 20ML MDV ONE (11:27)
[2024-05-25] MEDS ORDERED: MIDAZOLAM HCL 2MG/2ML 2ml VIAL (1mg/ml) ONE (11:48)
[2024-05-25] MEDS ORDERED: fentaNYL CITRATE 100 MCG/2 ML VL ONE (11:48)
[2024-05-25] MEDS ORDERED: ONDANSETRON HCL 4 MG/2 ML VIAL IV ONE (13:15)
[2024-05-25] MEDS ORDERED: NALOXONE HCL 0.4 MG/ML VIAL IV PRN (14:00)
[2024-05-25] MEDS ORDERED: hydrALAZINE HCL 20 MG/ML VL IV PRN (14:00)
[2024-05-25] MEDS: HYDROmorphone HCL 2 MG/ML VL/or syr IV PRN (14:00)
[2024-05-25] MEDS ORDERED: LABETALOL HCL 5 MG/ML 4ML SYRINGE IV PRN (14:00)
[2024-05-25] MEDS ORDERED: ePHEDrine SULFATE 50 MG/ML AMP IV PRN (14:00)
[2024-05-25] MEDS ORDERED: fentaNYL CITRATE 100 MCG/2 ML VL IV PRN (14:00)
[2024-05-25] MEDS ORDERED: ONDANSETRON HCL 4 MG/2 ML VIAL IV PRN (14:00)
[2024-05-25] MEDS ORDERED: FLUMAZENIL 0.1 MG/ML INJ 10ML MDV IV PRN (14:00)
[2024-05-25] MEDS: HYDROmorphone HCL 2 MG/ML VL/or syr ONE (14:10)
[2024-05-26 05:00] VITALS: BP 160/72; PULSE 73; RESP 18; TEMP 98.1; O2SAT 94
[2024-05-26 08:00] VITALS: RESP 18
[2024-05-26 08:44] VITALS: BP 132/89; PULSE 87; RESP 16; TEMP 97.9; O2SAT 94
[2024-05-26 13:00] VITALS: BP 148/82; PULSE 77; RESP 16; TEMP 98.6; O2SAT 97
[2024-05-26 17:00] VITALS: BP 129/64; PULSE 68; RESP 19; TEMP 98.4; O2SAT 95
[2024-05-26 20:42] VITALS: BP 134/66; PULSE 84; RESP 20; TEMP 97.7; O2SAT 95
[2024-05-27] VITALS (8 sets, daily range): BP systolic 115–165; BP diastolic 65–79; PULSE 60–83; RESP 18–19; TEMP 97.3–98.2; O2SAT 91–99
[2024-05-27] MEDS: KETOROLAC TROMETH 30 MG/ML 1ML VIAL IV ONE (06:18)
[2024-05-27] MEDS ORDERED: MORPHINE SULFATE INJ 2 MG/ml SYRG IV PRN (15:00)
[2024-05-27] MEDS: MORPHINE SULFATE INJ 2 MG/ml SYRG IV PRN (15:32)
[2024-05-28] VITALS (10 sets, daily range): BP systolic 120–153; BP diastolic 64–78; PULSE 59–88; RESP 17–19; TEMP 97.4–99; O2SAT 93–99
[2024-05-29] VITALS (7 sets, daily range): BP systolic 113–142; BP diastolic 69–81; PULSE 75–80; RESP 18; TEMP 97.7–98.9; O2SAT 94–98
[2024-05-30 05:00] VITALS: BP 121/83; PULSE 73; RESP 19; TEMP 98.7; O2SAT 97
[2024-05-30 08:00] VITALS: BP 95/42; PULSE 71; RESP 22; TEMP 97.6; O2SAT 90
[2024-05-30] MEDS: ACETAMINOPHEN 325 MG TAB PO PRN (09:33)
[2024-05-30 12:00] VITALS: BP 88/51; PULSE 74; RESP 18; TEMP 97.4; O2SAT 94
[2024-05-30 16:00] VITALS: BP 120/71; PULSE 67; RESP 18; TEMP 97.7; O2SAT 96
[2024-05-30 20:00] VITALS: RESP 18
[2024-05-30] MEDS: HYDROcodone-ACET 5/325MG TAB PO PRN (20:05)
[2024-05-30 21:00] VITALS: BP 133/68; PULSE 79; RESP 17; TEMP 97; O2SAT 94
[2024-05-31 01:00] VITALS: BP 121/64; PULSE 72; RESP 18; TEMP 97.6; O2SAT 95
[2024-05-31 05:00] VITALS: BP 118/64; PULSE 74; RESP 18; TEMP 97.6; O2SAT 96
[2024-05-31 08:25] VITALS: PULSE 81; RESP 18; O2SAT 95
[2024-05-31 09:44] VITALS: BP 126/86; PULSE 81; RESP 18; TEMP 97.6; O2SAT 95
[2024-05-31 14:40] VITALS: BP 116/60; PULSE 76; RESP 19; TEMP 97.5; O2SAT 96
[2024-05-31 17:38] VITALS: BP 130/67; PULSE 83; RESP 17; TEMP 97.6; O2SAT 97
== END 2024-05-31 19:05 | DRG 240 ==
LOC: EDUNIT# 17:10 → ER 17:10 → EDBD 17:10 → OVERFLOW 22:01 → CENTRAL 05-20 03:13
PROVIDERS: ADMIT Nurse Practitioner; ATTEND Internal Medicine
PROC: 047K3ZZ Dilation of Right Femoral Artery, Percutaneous Approach (ICD-10-PCS; principal; 2024-05-22)
PROC: B41D1ZZ Fluoroscopy of Aorta and Bilateral Lower Extremity Arteries using Low Osmolar Contrast (ICD-10-PCS; 2024-05-22)
PROC: B41G1ZZ Fluoroscopy of Left Lower Extremity Arteries using Low Osmolar Contrast (ICD-10-PCS; 2024-05-22)
PROC: B41F1ZZ Fluoroscopy of Right Lower Extremity Arteries using Low Osmolar Contrast (ICD-10-PCS; 2024-05-22)
PROC: 0Y6M0Z9 Detachment at Right Foot, Partial 1st Ray, Open Approach (ICD-10-PCS; 2024-05-25)
DX: E11.52 Type 2 diabetes mellitus with diabetic peripheral angiopathy with gangrene (principal); L03.115 Cellulitis of right lower limb; N39.0 Urinary tract infection, site not specified; N18.9 Chronic kidney disease, unspecified; E11.22 Type 2 diabetes mellitus with diabetic chronic kidney disease; I12.9 Hypertensive chronic kidney disease with stage 1 through stage 4 chronic kidney disease, or unspecified chronic kidney disease; I48.91 Unspecified atrial fibrillation; E78.00 Pure hypercholesterolemia, unspecified; E11.65 Type 2 diabetes mellitus with hyperglycemia; I25.10 Atherosclerotic heart disease of native coronary artery without angina pectoris; I25.2 Old myocardial infarction; Z82.49 Family history of ischemic heart disease and other diseases of the circulatory system; Z83.3 Family history of diabetes mellitus; Z86.73 Personal history of transient ischemic attack (TIA), and cerebral infarction without residual deficits; Z95.1 Presence of aortocoronary bypass graft; Z87.891 Personal history of nicotine dependence
CPT/HCPCS: 36415; 37224; 71045; 73630; 73700; 75716; 80048; 80053; 80320; 81001; 82962; 83036; 83605; 84132; 84484; 85025; 85610; 85730; 86850; 86900; 86901; 87040; 87077; 87186; 93005; 93926; 97110; 97163; 97530; 99152; C1769; C1894; G0378; J1815; J1885; J1956; J2001; J2250; J3490; Q9967

== ENCOUNTER 2024-07-22 22:29 | Inpatient (IN) | payer OTHER ==
[~2024-07-22] VITALS: Ht 182.9 cm; Wt 94.6 kg
[~2024-07-22 22:29] MED LIST changes: +ASPI-628 PO; +ATOR80TA PO; +BISA10SU60 PR; +CEFT1INJ6 IV; +CLOP75TA70 PO; +DOCU-94 PO; -FUR20T PO; +FURO20TA4 PO; +HYOS0.1258 SL; +INSU100I4 SC; +INSUINJ37 SC; +LORA-1121 PO; +POLY335015 PO; +SENN-58 PO; +VANC500I IV; +ZOFR4T PO
[2024-07-23 00:06] VITALS: PULSE 79; RESP 15; O2SAT 96
[2024-07-23 00:18] LABS: Basophils # (auto) 0.1 10 ^3/uL (0-0.2); Eosinophils # (auto) 0.1 10 ^3/uL (0-0.8); Hematocrit 30.6 % (41.0-53.0); Hemoglobin 10.3 g/dL (13.5-17.5); Lymphocytes # (auto) 0.6 10 ^3/uL (0.4-5.4); Lymphocytes % (auto) 4.4 % (10.0-50.0); Mean Corpuscular Hgb Conc. 33.8 g/dL (32.0-36.0); Monocytes # (auto) 0.8 10 ^3/uL (0-1.3); Monocytes % (auto) 5.6 % (0.0-12.0); Neutrophils # (auto) 12.9 10 ^3/uL (1.6-8.6); Platelet Count (auto) 162 10^3/uL (140-450); Red Blood Cells 3.69 10^6/uL (4.5-5.90); Red Cell Distribution Width 17.6 % (11.8-14.3); White Blood Cell 14.7 10^3/uL (4.4-10.8)
[2024-07-23 00:45] LABS: Chloride 103 mmol/L (98-107); Potassium 2.7 mmol/L (3.5-5.1); Sodium 133 mmol/L (136-145)
[2024-07-23 00:46] LABS: Anion Gap 14 (5-15); Carbon Dioxide 16 mmol/L (20-30)
[2024-07-23 00:51] LABS: BUN/Creatinine Ratio 9.9 (10.0-20.0); Blood Urea Nitrogen 15 mg/dL (9-23); Glucose 161 mg/dL (74-106)
[2024-07-23] MEDS: SODIUM CHLORIDE 0.9% 1,000 ML IV ONE (03:03)
[2024-07-23] MEDS: POTASSIUM CHL 20MEQ/100ML 100 ML IV SCH ×2 (03:04→14:50)
[2024-07-23] MEDS: VANCOMYCIN 1GM/250ML 200 ML IV ONE (03:04)
[2024-07-23] MEDS ORDERED: ONDANSETRON HCL 4 MG/2 ML VIAL IV PRN (06:00)
[2024-07-23] MEDS ORDERED: ACETAMINOPHEN 325 MG TAB PO PRN (06:00)
[2024-07-23] MEDS ORDERED: VANCOMYCIN PER PHARMACY 0 MG IV SCH (06:00)
[2024-07-23] MEDS: LEVOTHYROXINE SODIUM 112 MCG TAB PO SCH (06:00)
[2024-07-23] MEDS: InsuLIN REG 1unit/0.01ml Soln (100units/ml) SC SCH (06:00)
[2024-07-23] MEDS: ACCU-CHEK COMFORT CURVE STRIP VI SCH (06:00)
[2024-07-23] MEDS: PIPERACILLIN-TAZOB 3.375GM 100 ML IV SCH (06:00)
[2024-07-23] MEDS ORDERED: DEXTROSE (50%) 50ML SYRG IV PRN (06:00)
[2024-07-23 07:50] VITALS: PULSE 84; RESP 15; O2SAT 100
[2024-07-23] MEDS ORDERED: ENOXAPARIN SOD 30 MG/0.3 ML SYRINGE SC SCH (10:00)
[2024-07-23] MEDS: ENOXAPARIN SOD 40 MG/0.4 ML SYRINGE SC SCH (10:00)
[2024-07-23] MEDS: CLOPIDOGREL BISULFATE 75 MG TAB PO SCH (10:10)
[2024-07-23] MEDS ORDERED: ACET-1881 PO (15:46)
[2024-07-23] MEDS ORDERED: HYDR-4902 PO (15:46)
[2024-07-23] MEDS ORDERED: LOPE2CAP PO (15:46)
[2024-07-23 16:45] VITALS: BP 107/52; PULSE 75; RESP 16; TEMP 98.3; O2SAT 96
[2024-07-23 20:00] VITALS: PULSE 84; RESP 20; O2SAT 96
[2024-07-23] MEDS: VANCOMYCIN 1GM/250ML 200 ML IV SCH (20:43)
[2024-07-23 21:00] VITALS: BP 119/63; PULSE 84; RESP 20; TEMP 98.2; O2SAT 96
[2024-07-23] MEDS: ATORVASTATIN 20 MG TAB PO SCH (22:34)
[2024-07-23] MEDS: POTASSIUM EFFERVESENT TAB 25 MEQ PO ONE (22:35)
[2024-07-24] VITALS (8 sets, daily range): BP systolic 100–120; BP diastolic 48–62; PULSE 72–85; RESP 16–19; TEMP 97.9–98.5; O2SAT 93–98
[2024-07-24] MEDS: VANCOMYCIN 1GM/250ML 200 ML IV SCH (11:02)
[2024-07-24] MEDS: BUPIVACAINE 0.5% MPF INJ 30ML SDV IJ ONE (11:32)
[2024-07-24] MEDS ORDERED: PROPOFOL 10 MG/ML 20 ML IV ONE (12:03)
[2024-07-24] MEDS ORDERED: fentaNYL CITRATE 100 MCG/2 ML VL ONE (12:03)
[2024-07-25] VITALS (7 sets, daily range): BP systolic 97–126; BP diastolic 50–74; PULSE 65–74; RESP 18–20; TEMP 97.6–98.8; O2SAT 92–97
[2024-07-25] MEDS: HYDROcodone-ACET 5/325MG TAB PO PRN (01:58)
[2024-07-25 11:24] LABS: Basophils # (auto) 0 10 ^3/uL (0-0.2); Basophils % (auto) 0.5 % (0.0-2.0); Eosinophils # (auto) 0.5 10 ^3/uL (0-0.8); Eosinophils % (auto) 6.2 % (0.0-7.0); Hemoglobin 9.2 g/dL (13.5-17.5); Lymphocytes # (auto) 0.6 10 ^3/uL (0.4-5.4); Lymphocytes % (auto) 7.1 % (10.0-50.0); Mean Corpuscular Hemoglobin 28.2 pg (28.0-32.0); Mean Corpuscular Hgb Conc. 34.2 g/dL (32.0-36.0); Mean Corpuscular Volume 82.5 fL (80.0-100.0); Monocytes # (auto) 0.5 10 ^3/uL (0-1.3); Monocytes % (auto) 6.2 % (0.0-12.0); Neutrophils # (auto) 6.4 10 ^3/uL (1.6-8.6); Nucleated Red Blood Cells % 0.1 %; Platelet Count (auto) 154 10^3/uL (140-450); Red Blood Cells 3.27 10^6/uL (4.5-5.90); Red Cell Distribution Width 17.1 % (11.8-14.3); White Blood Cell 8.1 10^3/uL (4.4-10.8)
[2024-07-25 11:36] LABS: INR 1.17 (0.9-1.15); Partial Thromboplastin Time 25.7 SEC (24.5-34.5); Prothrombin Time 12.3 sec (9.3-11.8)
[2024-07-25 11:38] LABS: Alanine Aminotransferase 11 U/L (7-40); Alkaline Phosphatase 92 U/L (46-116); Anion Gap 9 (5-15); Aspartate Aminotransferase 24 U/L (13-40); Blood Urea Nitrogen 11 mg/dL (9-23); Calcium 7.9 mg/dL (8.7-10.4); Carbon Dioxide 19 mmol/L (20-30); Chloride 104 mmol/L (98-107); Glucose 194 mg/dL (74-106); Potassium 2.7 mmol/L (3.5-5.1); Sodium 132 mmol/L (136-145)
[2024-07-25 11:39] LABS: Albumin 3.1 g/dL (3.2-4.8); Bilirubin, Total 0.5 mg/dL (0.2-1.0); Total Protein 5.4 g/dL (5.7-8.2)
[2024-07-25] MEDS: POTASSIUM EFFERVESENT TAB 25 MEQ PO ONE (13:30)
[2024-07-25] MEDS: metroNIDAZOLE 500MG/100ML 100 ML IV SCH (17:52)
[2024-07-25] MEDS: LIDOCAINE 1% (LOCAL ANESTH.) PF 5ml SDV ID ONE (18:00)
[2024-07-25] MEDS: SODIUM CHLOR 0.9% PF (SALINE LOCK) 10ML VIAL/SYR IV SCH (21:47)
[2024-07-26] VITALS (8 sets, daily range): BP systolic 103–126; BP diastolic 47–82; PULSE 68–78; RESP 17–19; TEMP 97.9–98.9; O2SAT 96–99
[2024-07-26] MEDS: metroNIDAZOLE 500MG/100ML 100 ML IV SCH (00:56)
[2024-07-26] MEDS: PIPERACILLIN-TAZOB 3.375GM 100 ML IV SCH (02:53)
[2024-07-26] MEDS: VANCOMYCIN 1GM/250ML 200 ML IV SCH (08:08)
[2024-07-26 08:11] LABS: Alanine Aminotransferase 14 U/L (7-40); Albumin 2.9 g/dL (3.2-4.8); Alkaline Phosphatase 94 U/L (46-116); Anion Gap 4 (5-15); Aspartate Aminotransferase 24 U/L (13-40); BUN/Creatinine Ratio 7.4 (10.0-20.0); Bilirubin, Total 0.4 mg/dL (0.2-1.0); Blood Urea Nitrogen 9 mg/dL (9-23); Calcium 8.3 mg/dL (8.7-10.4); Carbon Dioxide 24 mmol/L (20-30); Chloride 106 mmol/L (98-107); Glucose 164 mg/dL (74-106); Potassium 3.1 mmol/L (3.5-5.1); Sodium 134 mmol/L (136-145); Total Protein 5.3 g/dL (5.7-8.2)
[2024-07-26 09:40] LABS: Basophils # (auto) 0.1 10 ^3/uL (0-0.2); Basophils % (auto) 1.2 % (0.0-2.0); Eosinophils # (auto) 0.4 10 ^3/uL (0-0.8); Eosinophils % (auto) 6.9 % (0.0-7.0); Hematocrit 27.3 % (41.0-53.0); Hemoglobin 9.2 g/dL (13.5-17.5); Lymphocytes # (auto) 0.7 10 ^3/uL (0.4-5.4); Lymphocytes % (auto) 10.9 % (10.0-50.0); Mean Corpuscular Hemoglobin 27.9 pg (28.0-32.0); Mean Corpuscular Hgb Conc. 33.9 g/dL (32.0-36.0); Mean Corpuscular Volume 82.5 fL (80.0-100.0); Monocytes # (auto) 0.6 10 ^3/uL (0-1.3); Monocytes % (auto) 9.1 % (0.0-12.0); Neutrophils # (auto) 4.4 10 ^3/uL (1.6-8.6); Neutrophils % (auto) 71.9 % (37.0-80.0); Platelet Count (auto) 169 10^3/uL (140-450); Red Blood Cells 3.31 10^6/uL (4.5-5.90); Red Cell Distribution Width 17.4 % (11.8-14.3); White Blood Cell 6.2 10^3/uL (4.4-10.8)
[2024-07-26] MEDS: ENOXAPARIN SOD 40 MG/0.4 ML SYRINGE SC SCH (10:55)
[2024-07-26] MEDS: POTASSIUM CHL 20 Meq TABLET PO ONE (11:49)
[2024-07-27] VITALS (8 sets, daily range): BP systolic 108–120; BP diastolic 49–69; PULSE 59–70; RESP 16–20; TEMP 97.9–98.3; O2SAT 94–100
[2024-07-27 06:35] LABS: Basophils # (auto) 0 10 ^3/uL (0-0.2); Basophils % (auto) 0.5 % (0.0-2.0); Eosinophils # (auto) 0.4 10 ^3/uL (0-0.8); Eosinophils % (auto) 6.5 % (0.0-7.0); Hematocrit 25.1 % (41.0-53.0); Hemoglobin 8.6 g/dL (13.5-17.5); Lymphocytes # (auto) 0.5 10 ^3/uL (0.4-5.4); Lymphocytes % (auto) 9.7 % (10.0-50.0); Mean Corpuscular Hemoglobin 28.5 pg (28.0-32.0); Mean Corpuscular Hgb Conc. 34.5 g/dL (32.0-36.0); Mean Corpuscular Volume 82.7 fL (80.0-100.0); Monocytes # (auto) 0.4 10 ^3/uL (0-1.3); Monocytes % (auto) 7.3 % (0.0-12.0); Neutrophils # (auto) 4.2 10 ^3/uL (1.6-8.6); Platelet Count (auto) 161 10^3/uL (140-450); Red Blood Cells 3.03 10^6/uL (4.5-5.90); Red Cell Distribution Width 17.6 % (11.8-14.3); White Blood Cell 5.5 10^3/uL (4.4-10.8)
[2024-07-27 09:22] LABS: Alanine Aminotransferase 11 U/L (7-40); Albumin 2.9 g/dL (3.2-4.8); Alkaline Phosphatase 94 U/L (46-116); Anion Gap 7 (5-15); Aspartate Aminotransferase 17 U/L (13-40); Calcium 8.1 mg/dL (8.7-10.4); Carbon Dioxide 20 mmol/L (20-30); Chloride 108 mmol/L (98-107); Glucose 143 mg/dL (74-106); Potassium 3.2 mmol/L (3.5-5.1); Sodium 135 mmol/L (136-145)
[2024-07-27 09:25] LABS: Bilirubin, Total 0.4 mg/dL (0.2-1.0); Total Protein 5.6 g/dL (5.7-8.2)
[2024-07-27 09:26] LABS: BUN/Creatinine Ratio 4.7 (10.0-20.0); Blood Urea Nitrogen < 5 mg/dL (9-23)
[2024-07-28] VITALS (7 sets, daily range): BP systolic 90–124; BP diastolic 51–66; PULSE 59–86; RESP 17–20; TEMP 97.4–98.1; O2SAT 96–99
[2024-07-28 08:11] LABS: Basophils # (auto) 0 10 ^3/uL (0-0.2); Basophils % (auto) 0.5 % (0.0-2.0); Eosinophils # (auto) 0.4 10 ^3/uL (0-0.8); Eosinophils % (auto) 7.3 % (0.0-7.0); Hematocrit 28.5 % (41.0-53.0); Hemoglobin 9.6 g/dL (13.5-17.5); Lymphocytes # (auto) 0.7 10 ^3/uL (0.4-5.4); Lymphocytes % (auto) 13.2 % (10.0-50.0); Mean Corpuscular Hemoglobin 28.7 pg (28.0-32.0); Mean Corpuscular Hgb Conc. 33.8 g/dL (32.0-36.0); Monocytes # (auto) 0.5 10 ^3/uL (0-1.3); Monocytes % (auto) 9.2 % (0.0-12.0); Neutrophils # (auto) 3.8 10 ^3/uL (1.6-8.6); Neutrophils % (auto) 69.8 % (37.0-80.0); Nucleated Red Blood Cells % 0.1 %; Platelet Count (auto) 185 10^3/uL (140-450); Red Blood Cells 3.35 10^6/uL (4.5-5.90); Red Cell Distribution Width 17.9 % (11.8-14.3); White Blood Cell 5.4 10^3/uL (4.4-10.8)
[2024-07-28 08:41] LABS: Albumin 2.9 g/dL (3.2-4.8); Alkaline Phosphatase 82 U/L (46-116); Anion Gap 5 (5-15); BUN/Creatinine Ratio 6.2 (10.0-20.0); Blood Urea Nitrogen 6 mg/dL (9-23); Calcium 8.2 mg/dL (8.7-10.4); Carbon Dioxide 25 mmol/L (20-30); Chloride 107 mmol/L (98-107); Glucose 148 mg/dL (74-106); Potassium 3.2 mmol/L (3.5-5.1); Sodium 137 mmol/L (136-145)
[2024-07-28 08:42] LABS: Aspartate Aminotransferase 12 U/L (13-40)
[2024-07-28 08:43] LABS: Bilirubin, Total 0.3 mg/dL (0.2-1.0); Total Protein 5.3 g/dL (5.7-8.2)
[2024-07-28 08:44] LABS: Alanine Aminotransferase 9 U/L (7-40)
[2024-07-28] MEDS ORDERED: LIDOCAINE 1% INJ PF 5ML AMP ONE (11:08)
[2024-07-28] MEDS ORDERED: KETOROLAC TROMETH 30 MG/ML 1ML VIAL ONE (11:08)
[2024-07-28] MEDS ORDERED: ONDANSETRON HCL 4 MG/2 ML VIAL ONE (11:08)
[2024-07-28] MEDS ORDERED: GLYCOPYRROLATE 0.2 MG/ML 1ML VIAL ONE (11:09)
[2024-07-28] MEDS ORDERED: PROPOFOL 10 MG/ML 20 ML IV ONE (11:09)
[2024-07-28] MEDS ORDERED: DexAMETHasone SOD PHOS 10MG/1ML VIAL INJ ONE (11:09)
[2024-07-28] MEDS ORDERED: ESMOLOL HCL 10 ML IV ONE (11:13)
[2024-07-28] MEDS ORDERED: levoFLOXacin 500MG 100 ML IV ONE (11:45)
[2024-07-28] MEDS: BUPIVACAINE 0.5% MPF INJ 30ML SDV IJ ONE (12:10)
[2024-07-28] MEDS: ceFAZolin 2 GM/D5W50ml 50 ML IV ONE (12:11)
[2024-07-28] MEDS: BUPIVACAINE HCL 0 ML ONE (12:17)
[2024-07-28] MEDS ORDERED: KETAMINE 50mg/ML 1ml syringe ONE (12:45)
[2024-07-28] MEDS ORDERED: ePHEDrine SULFATE 50 MG/ML AMP ONE (13:01)
[2024-07-28] MEDS ORDERED: ONDANSETRON HCL 4 MG/2 ML VIAL IV PRN (13:30)
[2024-07-28] MEDS ORDERED: fentaNYL CITRATE 100 MCG/2 ML VL IV PRN (13:30)
[2024-07-28] MEDS ORDERED: NALOXONE HCL 0.4 MG/ML VIAL IV PRN (13:30)
[2024-07-28] MEDS ORDERED: hydrALAZINE HCL 20 MG/ML VL IV PRN (13:30)
[2024-07-28] MEDS ORDERED: ePHEDrine SULFATE 50 MG/ML AMP IV PRN (13:30)
[2024-07-28] MEDS ORDERED: FLUMAZENIL 0.1 MG/ML INJ 10ML MDV IV PRN (13:30)
[2024-07-28] MEDS ORDERED: HYDROmorphone HCL 2 MG/ML VL/or syr IV PRN (13:30)
[2024-07-29] MEDS ORDERED: levoFLOXacin 500MG 100 ML IV SCH (10:00)
== END 2024-07-28 21:15 | DRG 616 ==
LOC: ER 22:29 → EDBD 22:29 → WEST WING 07-23 06:06 → OVERFLOW 07-23 06:06 → EDUNIT# 07-23 06:06 → WEST WING 07-23 16:05
PROVIDERS: ADMIT Nurse Practitioner; ATTEND Family Medicine
PROC: 0Y6M0Z9 Detachment at Right Foot, Partial 1st Ray, Open Approach (ICD-10-PCS; principal; 2024-07-24 12:24)
PROC: 02HV33Z Insertion of Infusion Device into Superior Vena Cava, Percutaneous Approach (ICD-10-PCS; 2024-07-25)
PROC: B548ZZA Ultrasonography of Superior Vena Cava, Guidance (ICD-10-PCS; 2024-07-25)
PROC: 0Y9M0ZZ Drainage of Right Foot, Open Approach (ICD-10-PCS; 2024-07-28)
DX: E11.69 Type 2 diabetes mellitus with other specified complication (principal); E43 Unspecified severe protein-calorie malnutrition; G93.41 Metabolic encephalopathy; M86.171 Other acute osteomyelitis, right ankle and foot; I12.0 Hypertensive chronic kidney disease with stage 5 chronic kidney disease or end stage renal disease; A04.72 Enterocolitis due to Clostridium difficile, not specified as recurrent; L03.115 Cellulitis of right lower limb; N18.6 End stage renal disease; F03.90 Unspecified dementia, unspecified severity, without behavioral disturbance, psychotic disturbance, mood disturbance, and anxiety; E11.22 Type 2 diabetes mellitus with diabetic chronic kidney disease; E87.6 Hypokalemia; E03.9 Hypothyroidism, unspecified; E78.00 Pure hypercholesterolemia, unspecified; E11.621 Type 2 diabetes mellitus with foot ulcer; L97.519 Non-pressure chronic ulcer of other part of right foot with unspecified severity; Z79.899 Other long term (current) drug therapy; Z79.4 Long term (current) use of insulin; Z68.29 Body mass index [BMI] 29.0-29.9, adult
CPT/HCPCS: 36415; 36569; 71045; 73630; 73700; 73718; 80048; 80053; 80202; 82962; 83605; 84132; 84484; 85025; 85610; 85730; 87077; 87186; 87205; 87493; 93005; 93925; 96365; G0378; J1100; J1815; J1885; J2405; J2543; J2704; J3480; J3490